=== PATIENT | female | born 1935 | race African-American/Black ===

== ENCOUNTER 2018-05-31 10:57 | Inpatient (IN) ==
[2018-05-31] MEDS ORDERED: ASPIRIN 325 MG TABLET PO STA (11:08)
[2018-05-31 11:30] LABS: Basophils % 0.3 % (0.0-0.8); Eosinophils % 0.3 % (0.00-10.9); Hematocrit 23.3 VOL% (35.7-47.0); Hemoglobin 7.1 GM/DL (12.0-16.0); Immature Granulocytes % 0.4 %; Immature Granulocytes Absolute 0.04 #; Lymphocytes # 1.1 10*3/uL (1.4-4.0); Lymphocytes % 11.4 % (21.3-54.2); Mean Corpuscular HGB Conc 30.5 GM/DL (32-36); Mean Corpuscular Hemoglobin 25 PG (27-34); Mean Corpuscular Volume 81.2 FL (87-102); Mean Platelet Volume 8.9 FL (9.6-12.0); Monocytes # 0.6 10*3/uL (0.11-0.8); Monocytes % 6.3 % (1.7-12.7); Neutrophils # 7.9 10*3/uL (1.4-7.4); Neutrophils % 81.3 % (38.7-73.9); Platelet Count 684 T/CUMM (130-400); Red Blood Count 2.87 MC/CUMM (3.8-5.5); Red Cell Distribution Width 17.6 % (9.3-17.3); White Blood Count 9.7 T/CUMM (4-12)
[2018-05-31] MEDS ORDERED: FUROSEMIDE 40 MG/4 ML VIAL IV STA (11:31)
[2018-05-31 11:42] LABS: PT Patient Result 10.8 SECS
[2018-05-31 12:12] LABS: Alanine Aminotransferase 10 U/L (13-56); Albumin 3.2 G/DL (3.4-5.0); Alkaline Phosphatase 123 U/L (45-117); Aspartate Amino Transferase 12 U/L (0-37); Blood Urea Nitrogen 23 MG/DL (7-18); Calcium 9.8 MG/DL (8.5-10.1); Glucose 136 MG/DL (74-106); Osmolality,Calculated 282.5 MOS/KG (273-304); Sodium 139 MMOL/L (136-145); Troponin I 0.036 NG/ML (0.00-0.045)
[2018-05-31] MEDS ORDERED: SODIUM CHLORIDE 0.9% 1,000 ML IV PRN (12:56)
[2018-05-31] MEDS ORDERED: MORPHINE 4 MG/1 ML VIAL IV PRN (13:26)
[2018-05-31] MEDS ORDERED: ONDANSETRON 4 MG/2 ML VIAL IV PRN (13:26)
[2018-05-31] MEDS ORDERED: diphenhydrAMINE CAP 25 MG CAPSULE PO PRN (13:26)
[2018-05-31] MEDS ORDERED: ACETAMINOPHEN 325 MG TABLET PO PRN (13:26)
[2018-05-31] MEDS ORDERED: traZODone 50 MG TABLET PO PRN (13:26)
[2018-05-31 14:20] LABS: % Iron Saturation 12.1 % (18-50); Ferritin 870.6 ng/ml (8-252)
[2018-05-31 14:28] LABS: Risk Ratio 2.76; VLDL CHOLESTEROL 12.8 MG/DL
[2018-05-31 14:29] LABS: Folate 13.4 NG/ML (5.4-24.0)
[2018-05-31] MEDS ORDERED: PNEUMOCOCCAL VACCINE (13 VALENT) 0.5 ML SYRINGE IM ONE (16:00)
[2018-05-31] MEDS: FUROSEMIDE 40 MG/4 ML VIAL IV SCH (16:51)
[2018-05-31] MEDS: GEMFIBROZIL 600 MG TABLET PO SCH (21:59)
[2018-05-31] MEDS: glipiZIDE 5 MG TABLET PO SCH (21:59)
[2018-05-31] MEDS: metFORMIN 500 MG TABLET PO SCH (21:59)
[2018-06-01 05:03] LABS: Basophils # 0.1 10*3/uL (0.0-0.2); Basophils % 0.6 % (0.0-0.8); Eosinophils # 0.1 10*3/uL (0.0-0.87); Eosinophils % 1.4 % (0.00-10.9); Hemoglobin 8.5 GM/DL (12.0-16.0); Immature Granulocytes % 0.8 %; Immature Granulocytes Absolute 0.08 #; Lymphocytes # 2.3 10*3/uL (1.4-4.0); Lymphocytes % 22.5 % (21.3-54.2); Mean Corpuscular HGB Conc 31.5 GM/DL (32-36); Mean Corpuscular Hemoglobin 25 PG (27-34); Mean Corpuscular Volume 80.6 FL (87-102); Mean Platelet Volume 8.8 FL (9.6-12.0); Monocytes % 9.5 % (1.7-12.7); Neutrophils # 6.7 10*3/uL (1.4-7.4); Neutrophils % 65.2 % (38.7-73.9); Platelet Count 631 T/CUMM (130-400); Red Blood Count 3.35 MC/CUMM (3.8-5.5); Red Cell Distribution Width 17.2 % (9.3-17.3); White Blood Count 10.3 T/CUMM (4-12)
[2018-06-01 05:31] LABS: Albumin 3.1 G/DL (3.4-5.0); Bilirubin,Total 0.5 MG/DL (0.2-1.0); Calcium 9.6 MG/DL (8.5-10.1); Osmolality,Calculated 282.3 MOS/KG (273-304); Potassium 3.6 MMOL/L (3.5-5.1); Total Protein 8.2 G/DL (6.4-8.3)
[2018-06-01] MEDS ORDERED: SIMVASTATIN 40 MG TABLET PO SCH (09:00)
[2018-06-01] MEDS ORDERED: hydroCHLOROthiazide 25 MG TABLET PO SCH (09:00)
[2018-06-01] MEDS ORDERED: amLODIPine 10 MG TABLET PO SCH (09:00)
[2018-06-01] MEDS ORDERED: amLODIPine 5 MG TABLET PO SCH (09:00)
[2018-06-01] MEDS ORDERED: BENAZEPRIL 40 MG TABLET PO SCH (09:00)
[2018-06-01] MEDS ORDERED: MIDAZOLAM 2 MG/2 ML VIAL ONE (09:03)
[2018-06-01 09:30] LABS: Albumin (SPE) 4.4 G/DL (3.2-5.3); Albumin (SPE) Rel % 52.2 %; Alpha 1 (SPE) 0.4 G/DL (0.1-0.4); Alpha 1 (SPE) Rel % 5.2 %; Alpha 2 (SPE) 1.3 G/DL (0.4-1.0); Alpha 2 (SPE) Rel % 15.2 %; Total Protein (Chem) 8.5 G/DL (6.4-8.3)
[2018-06-01 09:31] LABS: Beta (SPE) 1.1 G/DL (0.5-1.1); Beta (SPE) Rel % 13.8 %; Gamma (SPE) 1.1 G/DL (0.7-1.7); Gamma (SPE) Rel % 13.6 %
[2018-06-01] MEDS: glipiZIDE 5 MG TABLET PO SCH ×2 (10:04→22:03)
[2018-06-01] MEDS: metFORMIN 500 MG TABLET PO SCH ×2 (10:04→22:03)
[2018-06-01] MEDS: FUROSEMIDE 40 MG/4 ML VIAL IV SCH ×2 (10:23→15:38)
[2018-06-01] MEDS: GEMFIBROZIL 600 MG TABLET PO SCH ×2 (10:23→22:03)
[2018-06-01] MEDS: BENAZEPRIL 40 MG TABLET PO SCH (10:29)
[2018-06-01] MEDS: METOPROLOL TARTRATE 25 MG TABLET PO SCH (10:29)
[2018-06-01] MEDS: BISACODYL 5 MG TABLET PO SCH ×2 (12:02→17:07)
[2018-06-01] MEDS ORDERED: POLYETHYLENE GLYCOL POWDER 255 GM BOTTLE PO ONE (18:00)
[2018-06-01] MEDS: MAGNESIUM CITRATE 300 ML BOTTLE PO ONE (22:04)
[2018-06-02] MEDS: BISACODYL 5 MG TABLET PO SCH (02:43)
[2018-06-02 05:37] LABS: Basophils % 0.4 % (0.0-0.8); Eosinophils # 0.1 10*3/uL (0.0-0.87); Eosinophils % 1.3 % (0.00-10.9); Hematocrit 28.4 VOL% (35.7-47.0); Hemoglobin 8.7 GM/DL (12.0-16.0); Immature Granulocytes % 0.6 %; Immature Granulocytes Absolute 0.06 #; Lymphocytes # 2.4 10*3/uL (1.4-4.0); Lymphocytes % 24.2 % (21.3-54.2); Mean Corpuscular HGB Conc 30.6 GM/DL (32-36); Mean Corpuscular Hemoglobin 25 PG (27-34); Mean Corpuscular Volume 81.4 FL (87-102); Mean Platelet Volume 8.8 FL (9.6-12.0); Monocytes # 0.9 10*3/uL (0.11-0.8); Monocytes % 9.4 % (1.7-12.7); Neutrophils # 6.3 10*3/uL (1.4-7.4); Neutrophils % 64.1 % (38.7-73.9); Platelet Count 664 T/CUMM (130-400); Red Blood Count 3.49 MC/CUMM (3.8-5.5); Red Cell Distribution Width 17.6 % (9.3-17.3); White Blood Count 9.8 T/CUMM (4-12)
[2018-06-02 06:13] LABS: Calcium 9.9 MG/DL (8.5-10.1); Osmolality,Calculated 279.7 MOS/KG (273-304); Potassium 3.3 MMOL/L (3.5-5.1)
[2018-06-02 06:17] LABS: Albumin 3.2 G/DL (3.4-5.0); Bilirubin,Total 0.8 MG/DL (0.2-1.0); Calcium 9.9 MG/DL (8.5-10.1); Osmolality,Calculated 279.7 MOS/KG (273-304); Potassium 3.3 MMOL/L (3.5-5.1); Total Protein 8.5 G/DL (6.4-8.3)
[2018-06-02] MEDS: MAGNESIUM CITRATE 300 ML BOTTLE PO ONE (06:39)
[2018-06-02] MEDS ORDERED: PHENYLEPHRINE 1 MG/10 ML SYRINGE IV ONE (09:00)
[2018-06-02] MEDS ORDERED: ETOMIDATE 20 MG/10 ML VIAL IV ONE (09:00)
[2018-06-02] MEDS ORDERED: PROPOFOL 200 MG/20 ML VIAL IV ONE (09:00)
[2018-06-02] MEDS ORDERED: LIDOCAINE 1% 5 ML VIAL ONE (09:00)
[2018-06-02] MEDS ORDERED: ONDANSETRON 4 MG/2 ML VIAL ONE (09:05)
[2018-06-02] MEDS ORDERED: LIDOCAINE 100 MG/5 ML SYRINGE ONE (09:05)
[2018-06-02] MEDS: glipiZIDE 5 MG TABLET PO SCH ×2 (10:51→21:43)
[2018-06-02] MEDS: METOPROLOL TARTRATE 25 MG TABLET PO SCH (10:51)
[2018-06-02] MEDS: GEMFIBROZIL 600 MG TABLET PO SCH ×2 (10:51→21:43)
[2018-06-02] MEDS: FUROSEMIDE 40 MG/4 ML VIAL IV SCH ×2 (10:52→16:41)
[2018-06-02] MEDS: metFORMIN 500 MG TABLET PO SCH ×2 (10:52→21:42)
[2018-06-02] MEDS: POTASSIUM CHLORIDE RIDER 10 MEQ in PREMIX 1 EACH IV PRN ×4 (10:53→17:58)
[2018-06-02] MEDS: BENAZEPRIL 40 MG TABLET PO SCH (10:55)
[2018-06-02] MEDS: SIMVASTATIN 40 MG TABLET PO SCH (21:43)
[2018-06-03] MEDS: POTASSIUM CHLORIDE RIDER 10 MEQ in PREMIX 1 EACH IV PRN ×4 (00:47→05:16)
[2018-06-03 07:42] LABS: Basophils % 0.3 % (0.0-0.8); Eosinophils # 0.1 10*3/uL (0.0-0.87); Eosinophils % 1.2 % (0.00-10.9); Hematocrit 26.2 VOL% (35.7-47.0); Hemoglobin 8.2 GM/DL (12.0-16.0); Immature Granulocytes % 0.7 %; Immature Granulocytes Absolute 0.08 #; Lymphocytes # 2.1 10*3/uL (1.4-4.0); Lymphocytes % 18.6 % (21.3-54.2); Mean Corpuscular HGB Conc 31.3 GM/DL (32-36); Mean Corpuscular Hemoglobin 26 PG (27-34); Mean Corpuscular Volume 82.1 FL (87-102); Mean Platelet Volume 8.6 FL (9.6-12.0); Monocytes # 0.9 10*3/uL (0.11-0.8); Monocytes % 8.1 % (1.7-12.7); Neutrophils # 7.9 10*3/uL (1.4-7.4); Neutrophils % 71.1 % (38.7-73.9); Platelet Count 551 T/CUMM (130-400); Red Blood Count 3.19 MC/CUMM (3.8-5.5); Red Cell Distribution Width 17.6 % (9.3-17.3)
[2018-06-03 08:24] LABS: Albumin 2.9 G/DL (3.4-5.0); Bilirubin,Total 0.8 MG/DL (0.2-1.0); Calcium 9.7 MG/DL (8.5-10.1); Potassium 3.6 MMOL/L (3.5-5.1); Total Protein 7.9 G/DL (6.4-8.3)
[2018-06-03] MEDS: FUROSEMIDE 40 MG/4 ML VIAL IV SCH ×2 (08:59→17:00)
[2018-06-03] MEDS: GEMFIBROZIL 600 MG TABLET PO SCH ×2 (09:00→21:54)
[2018-06-03] MEDS: glipiZIDE 5 MG TABLET PO SCH ×2 (09:00→21:54)
[2018-06-03] MEDS: METOPROLOL TARTRATE 25 MG TABLET PO SCH (09:00)
[2018-06-03] MEDS: metFORMIN 500 MG TABLET PO SCH (09:00)
[2018-06-03] MEDS ORDERED: ENALAPRIL 10 MG TABLET PO SCH (09:30)
[2018-06-03] MEDS ORDERED: ENALAPRIL 20 MG TABLET PO SCH (09:30)
[2018-06-03] MEDS: BENAZEPRIL 40 MG TABLET PO SCH (12:40)
[2018-06-03] MEDS: SIMVASTATIN 40 MG TABLET PO SCH (21:54)
[2018-06-04 05:23] LABS: Basophils % 0.4 % (0.0-0.8); Eosinophils # 0.2 10*3/uL (0.0-0.87); Eosinophils % 1.9 % (0.00-10.9); Hematocrit 24.5 VOL% (35.7-47.0); Hemoglobin 7.7 GM/DL (12.0-16.0); Immature Granulocytes % 0.9 %; Immature Granulocytes Absolute 0.09 #; Lymphocytes # 2.3 10*3/uL (1.4-4.0); Lymphocytes % 22.5 % (21.3-54.2); Mean Corpuscular HGB Conc 31.4 GM/DL (32-36); Mean Corpuscular Hemoglobin 25 PG (27-34); Mean Corpuscular Volume 80.9 FL (87-102); Mean Platelet Volume 8.7 FL (9.6-12.0); Monocytes # 1.1 10*3/uL (0.11-0.8); Monocytes % 10.4 % (1.7-12.7); Neutrophils # 6.5 10*3/uL (1.4-7.4); Neutrophils % 63.9 % (38.7-73.9); Platelet Count 552 T/CUMM (130-400); Red Blood Count 3.03 MC/CUMM (3.8-5.5); Red Cell Distribution Width 17.4 % (9.3-17.3); White Blood Count 10.2 T/CUMM (4-12)
[2018-06-04 05:51] LABS: Calcium 9.7 MG/DL (8.5-10.1); Osmolality,Calculated 278.1 MOS/KG (273-304); Potassium 3.6 MMOL/L (3.5-5.1)
[2018-06-04] MEDS: GEMFIBROZIL 600 MG TABLET PO SCH ×2 (08:31→23:57)
[2018-06-04] MEDS: glipiZIDE 5 MG TABLET PO SCH ×2 (08:31→23:57)
[2018-06-04] MEDS: METOPROLOL TARTRATE 25 MG TABLET PO SCH (08:32)
[2018-06-04] MEDS: FUROSEMIDE 40 MG/4 ML VIAL IV SCH ×2 (08:32→16:12)
[2018-06-04] MEDS ORDERED: SODIUM CHLORIDE 0.9% 1,000 ML IV PRN (14:06)
[2018-06-04 20:32] LABS: Hematocrit 26.5 VOL% (35.7-47.0); Hemoglobin 8.6 GM/DL (12.0-16.0)
[2018-06-04] MEDS: SIMVASTATIN 40 MG TABLET PO SCH (23:58)
[2018-06-05 05:34] LABS: Basophils # 0.1 10*3/uL (0.0-0.2); Basophils % 0.5 % (0.0-0.8); Eosinophils # 0.2 10*3/uL (0.0-0.87); Hematocrit 28.2 VOL% (35.7-47.0); Hemoglobin 8.8 GM/DL (12.0-16.0); Immature Granulocytes % 0.8 %; Immature Granulocytes Absolute 0.07 #; Lymphocytes # 2.1 10*3/uL (1.4-4.0); Lymphocytes % 22.9 % (21.3-54.2); Mean Corpuscular HGB Conc 31.2 GM/DL (32-36); Mean Corpuscular Hemoglobin 26 PG (27-34); Mean Corpuscular Volume 81.7 FL (87-102); Mean Platelet Volume 8.8 FL (9.6-12.0); Neutrophils # 5.7 10*3/uL (1.4-7.4); Neutrophils % 62.8 % (38.7-73.9); Platelet Count 560 T/CUMM (130-400); Red Blood Count 3.45 MC/CUMM (3.8-5.5); Red Cell Distribution Width 17.3 % (9.3-17.3); White Blood Count 9.1 T/CUMM (4-12)
[2018-06-05 05:45] LABS: Calcium 9.6 MG/DL (8.5-10.1); Osmolality,Calculated 286.7 MOS/KG (273-304); Potassium 3.6 MMOL/L (3.5-5.1)
[2018-06-05] MEDS: FUROSEMIDE 40 MG/4 ML VIAL IV SCH ×2 (09:31→17:39)
[2018-06-05] MEDS: glipiZIDE 5 MG TABLET PO SCH ×2 (09:32→21:14)
[2018-06-05] MEDS: GEMFIBROZIL 600 MG TABLET PO SCH ×2 (09:32→21:14)
[2018-06-05] MEDS: METOPROLOL TARTRATE 25 MG TABLET PO SCH (09:32)
[2018-06-05] MEDS: SIMVASTATIN 40 MG TABLET PO SCH (21:14)
[2018-06-06] MEDS ORDERED: TUBERCULIN SKIN TEST 0.1 ML SYRINGE INTRADERM ONE (07:35)
[2018-06-06] MEDS: GEMFIBROZIL 600 MG TABLET PO SCH ×2 (09:04→21:06)
[2018-06-06] MEDS: METOPROLOL SUCCINATE XL 25 MG TABLET PO SCH (09:04)
[2018-06-06] MEDS: glipiZIDE 5 MG TABLET PO SCH (17:41)
[2018-06-06] MEDS: SIMVASTATIN 40 MG TABLET PO SCH (21:06)
[2018-06-07 05:11] LABS: Calcium 9.8 MG/DL (8.5-10.1); Osmolality,Calculated 282.7 MOS/KG (273-304); Potassium 3.3 MMOL/L (3.5-5.1)
[2018-06-07 05:12] LABS: Basophils # 0.1 10*3/uL (0.0-0.2); Basophils % 0.6 % (0.0-0.8); Eosinophils # 0.1 10*3/uL (0.0-0.87); Eosinophils % 1.6 % (0.00-10.9); Hematocrit 27.2 VOL% (35.7-47.0); Hemoglobin 8.5 GM/DL (12.0-16.0); Immature Granulocytes % 0.7 %; Immature Granulocytes Absolute 0.06 #; Lymphocytes # 1.9 10*3/uL (1.4-4.0); Lymphocytes % 22.1 % (21.3-54.2); Mean Corpuscular HGB Conc 31.3 GM/DL (32-36); Mean Corpuscular Hemoglobin 26 PG (27-34); Mean Corpuscular Volume 82.2 FL (87-102); Monocytes # 0.9 10*3/uL (0.11-0.8); Monocytes % 10.5 % (1.7-12.7); Neutrophils # 5.6 10*3/uL (1.4-7.4); Neutrophils % 64.5 % (38.7-73.9); Platelet Count 546 T/CUMM (130-400); Red Blood Count 3.31 MC/CUMM (3.8-5.5); Red Cell Distribution Width 17.2 % (9.3-17.3); White Blood Count 8.7 T/CUMM (4-12)
[2018-06-07] MEDS ORDERED: MAGNESIUM SULF RIDER 2 GM in PREMIX 1 EACH IV PRN (08:49)
[2018-06-07] MEDS ORDERED: MAGNESIUM SULF RIDER 4 GM in PREMIX 1 EACH IV PRN (08:49)
[2018-06-07] MEDS ORDERED: MAGNESIUM SULF RIDER 2 GM in PREMIX 1 EACH IV ONE (09:00)
[2018-06-07] MEDS: GEMFIBROZIL 600 MG TABLET PO SCH ×2 (10:36→20:47)
[2018-06-07] MEDS: glipiZIDE 5 MG TABLET PO SCH ×2 (10:36→16:14)
[2018-06-07] MEDS: METOPROLOL SUCCINATE XL 25 MG TABLET PO SCH (10:36)
[2018-06-07] MEDS: POLYETHYLENE GLYCOL POWDER 17 GM PACK PO SCH (10:39)
[2018-06-07] MEDS: SIMVASTATIN 40 MG TABLET PO SCH (20:47)
[2018-06-08 05:15] LABS: Basophils # 0.1 10*3/uL (0.0-0.2); Basophils % 0.6 % (0.0-0.8); Eosinophils # 0.2 10*3/uL (0.0-0.87); Eosinophils % 1.8 % (0.00-10.9); Hemoglobin 8.6 GM/DL (12.0-16.0); Immature Granulocytes % 0.8 %; Immature Granulocytes Absolute 0.07 #; Lymphocytes # 1.8 10*3/uL (1.4-4.0); Lymphocytes % 19.1 % (21.3-54.2); Mean Corpuscular HGB Conc 30.7 GM/DL (32-36); Mean Corpuscular Hemoglobin 26 PG (27-34); Mean Corpuscular Volume 83.1 FL (87-102); Mean Platelet Volume 8.8 FL (9.6-12.0); Monocytes # 0.9 10*3/uL (0.11-0.8); Monocytes % 9.8 % (1.7-12.7); Neutrophils # 6.3 10*3/uL (1.4-7.4); Neutrophils % 67.9 % (38.7-73.9); Platelet Count 510 T/CUMM (130-400); Red Blood Count 3.37 MC/CUMM (3.8-5.5); Red Cell Distribution Width 17.5 % (9.3-17.3); White Blood Count 9.3 T/CUMM (4-12)
[2018-06-08 05:36] LABS: Calcium 9.9 MG/DL (8.5-10.1); Osmolality,Calculated 281.5 MOS/KG (273-304); Potassium 3.5 MMOL/L (3.5-5.1)
[2018-06-08] MEDS: POLYETHYLENE GLYCOL POWDER 17 GM PACK PO SCH (09:53)
[2018-06-08] MEDS: GEMFIBROZIL 600 MG TABLET PO SCH (09:53)
[2018-06-08] MEDS: glipiZIDE 5 MG TABLET PO SCH (09:53)
[2018-06-08] MEDS: METOPROLOL SUCCINATE XL 25 MG TABLET PO SCH (09:53)
[2018-06-08 11:47] VITALS: BP 116/56
== END 2018-06-08 14:45 | disposition swing bed (61) | DRG 377 ==
LOC: EDBD → EDUNIT# → N.ED 10:57 → SUATTDRO 14:17 → N.EDINP 14:17 → N.2E 15:31
PROVIDERS: ADMIT Internal Medicine Infectious Disease; ATTEND Internal Medicine

== ENCOUNTER 2018-07-12 14:03 | Inpatient (IN) ==
[2018-07-12] MEDS ORDERED: DEXTROSE 50% 25 GM/50 ML SYRINGE IV PRN (15:07)
[2018-07-12] MEDS ORDERED: GLUCAGON 1 MG VIAL IM PRN (15:07)
[2018-07-12] MEDS ORDERED: ONDANSETRON 4 MG/2 ML VIAL IV PRN (15:07)
[2018-07-12] MEDS ORDERED: ALBUTEROL 2.5 MG/3 ML NEB RESP TX PRN (15:10)
[2018-07-12] MEDS ORDERED: ALBUTEROL/IPRATROPIUM 3 ML NEB RESP TX PRN (15:10)
[2018-07-12 15:31] LABS: Basophils % 0.4 % (0.0-0.8); Eosinophils # 0.1 10*3/uL (0.0-0.87); Eosinophils % 1.2 % (0.00-10.9); Hematocrit 21.9 VOL% (35.7-47.0); Hemoglobin 6.8 GM/DL (12.0-16.0); Immature Granulocytes % 0.5 %; Immature Granulocytes Absolute 0.05 #; Lymphocytes # 1.8 10*3/uL (1.4-4.0); Lymphocytes % 19.4 % (21.3-54.2); Mean Corpuscular HGB Conc 31.1 GM/DL (32-36); Mean Corpuscular Hemoglobin 25 PG (27-34); Mean Corpuscular Volume 81.7 FL (87-102); Mean Platelet Volume 8.7 FL (9.6-12.0); Monocytes # 0.9 10*3/uL (0.11-0.8); Monocytes % 9.5 % (1.7-12.7); NRBC # 0.03 10*3/uL; Neutrophils # 6.6 10*3/uL (1.4-7.4); Platelet Count 524 T/CUMM (130-400); Red Blood Count 2.68 MC/CUMM (3.8-5.5); Red Cell Distribution Width 18.8 % (9.3-17.3); White Blood Count 9.5 T/CUMM (4-12)
[2018-07-12] MEDS ORDERED: diphenhydrAMINE CAP 25 MG CAPSULE PO PRN (15:37)
[2018-07-12 15:49] LABS: Alanine Aminotransferase < 9 U/L (13-56); Alkaline Phosphatase 105 U/L (45-117); Aspartate Amino Transferase 14 U/L (0-37); Bilirubin,Total < 0.39 MG/DL (0.2-1.0); Blood Urea Nitrogen 15 MG/DL (7-18); Glucose 142 MG/DL (74-106); Sodium 136 MMOL/L (136-145); Total Protein 7.4 G/DL (6.4-8.3)
[2018-07-12] MEDS ORDERED: SODIUM CHLORIDE 0.9% 1,000 ML IV PRN (15:59)
[2018-07-12] MEDS ORDERED: FUROSEMIDE 20 MG/2 ML VIAL IV ONE (17:41)
[2018-07-12] MEDS: INSULIN LISPRO 100 UNIT/ML SUBCUT SCH ×2 (19:28→21:30)
[2018-07-12] MEDS: glipiZIDE 5 MG TABLET PO SCH (19:28)
[2018-07-12] MEDS: GEMFIBROZIL 600 MG TABLET PO SCH (21:31)
[2018-07-12] MEDS: SIMVASTATIN 40 MG TABLET PO SCH (21:31)
[2018-07-12] MEDS: DOCUSATE SODIUM 100 MG CAPSULE PO SCH (21:31)
[2018-07-13 05:11] LABS: Basophils # 0.1 10*3/uL (0.0-0.2); Basophils % 0.7 % (0.0-0.8); Eosinophils # 0.2 10*3/uL (0.0-0.87); Eosinophils % 2.5 % (0.00-10.9); Hematocrit 25.4 VOL% (35.7-47.0); Hemoglobin 7.9 GM/DL (12.0-16.0); Immature Granulocytes % 0.5 %; Immature Granulocytes Absolute 0.04 #; Lymphocytes # 1.7 10*3/uL (1.4-4.0); Lymphocytes % 19.5 % (21.3-54.2); Mean Corpuscular HGB Conc 31.1 GM/DL (32-36); Mean Corpuscular Hemoglobin 26 PG (27-34); Mean Corpuscular Volume 84.4 FL (87-102); Mean Platelet Volume 9.1 FL (9.6-12.0); Monocytes % 10.9 % (1.7-12.7); NRBC # 0.02 10*3/uL; Neutrophils # 5.8 10*3/uL (1.4-7.4); Neutrophils % 65.9 % (38.7-73.9); Platelet Count 506 T/CUMM (130-400); Red Blood Count 3.01 MC/CUMM (3.8-5.5); Red Cell Distribution Width 18.4 % (9.3-17.3); White Blood Count 8.7 T/CUMM (4-12)
[2018-07-13 08:46] LABS: Partial Thromboplastin Time 28.9 SECS (0-40)
[2018-07-13] MEDS ORDERED: NON-FORMULARY MEDICATION (Omeprazole [Prilosec] 20 MG) PO SCH (09:00)
[2018-07-13] MEDS ORDERED: POTASSIUM CHLORIDE 10 MEQ TABLET PO SCH (09:00)
[2018-07-13] MEDS ORDERED: FUROSEMIDE 20 MG/2 ML VIAL IV SCH (09:00)
[2018-07-13] MEDS ORDERED: FUROSEMIDE 20 MG TABLET PO SCH (09:00)
[2018-07-13] MEDS: INSULIN LISPRO 100 UNIT/ML SUBCUT SCH ×4 (09:56→21:21)
[2018-07-13] MEDS: glipiZIDE 5 MG TABLET PO SCH ×2 (10:07→16:16)
[2018-07-13] MEDS: POTASSIUM CHLORIDE 20 MEQ TABLET PO SCH ×2 (10:07→20:31)
[2018-07-13] MEDS: FUROSEMIDE 40 MG/4 ML VIAL IV SCH ×2 (10:07→16:16)
[2018-07-13] MEDS: METOPROLOL SUCCINATE XL 25 MG TABLET PO SCH (10:08)
[2018-07-13] MEDS: GEMFIBROZIL 600 MG TABLET PO SCH ×2 (10:08→20:30)
[2018-07-13] MEDS: PANTOPRAZOLE 40 MG TABLET PO SCH (10:09)
[2018-07-13] MEDS: DOCUSATE SODIUM 100 MG CAPSULE PO SCH ×2 (10:09→20:31)
[2018-07-13] MEDS: ACETAMINOPHEN 325 MG TABLET PO PRN (16:02)
[2018-07-13] MEDS: SIMVASTATIN 40 MG TABLET PO SCH (20:31)
[2018-07-14 04:39] LABS: Osmolality,Calculated 282.3 MOS/KG (273-304)
[2018-07-14 06:21] LABS: Basophils % 0.4 % (0.0-0.8); Eosinophils # 0.3 10*3/uL (0.0-0.87); Eosinophils % 3.4 % (0.00-10.9); Hematocrit 27.5 VOL% (35.7-47.0); Hemoglobin 8.5 GM/DL (12.0-16.0); Immature Granulocytes % 0.7 %; Immature Granulocytes Absolute 0.06 #; Lymphocytes # 2.2 10*3/uL (1.4-4.0); Lymphocytes % 23.8 % (21.3-54.2); Mean Corpuscular HGB Conc 30.9 GM/DL (32-36); Mean Corpuscular Hemoglobin 26 PG (27-34); Mean Corpuscular Volume 84.9 FL (87-102); Mean Platelet Volume 9.3 FL (9.6-12.0); Monocytes # 1.1 10*3/uL (0.11-0.8); Monocytes % 11.9 % (1.7-12.7); Neutrophils # 5.4 10*3/uL (1.4-7.4); Neutrophils % 59.8 % (38.7-73.9); Platelet Count 562 T/CUMM (130-400); Red Blood Count 3.24 MC/CUMM (3.8-5.5); Red Cell Distribution Width 18.5 % (9.3-17.3); White Blood Count 9.1 T/CUMM (4-12)
[2018-07-14] MEDS ORDERED: POTASSIUM CHLORIDE RIDER 10 MEQ in PREMIX 1 EACH IV PRN (07:13)
[2018-07-14] MEDS ORDERED: MAGNESIUM SULF RIDER 2 GM in PREMIX 1 EACH IV PRN (07:13)
[2018-07-14] MEDS ORDERED: HEPARIN/NACL 0.9% 2 UNITS/ML 1,000 ML IV ONE (11:31)
[2018-07-14] MEDS ORDERED: LIDOCAINE 1% 20 ML VIAL ONE (11:31)
[2018-07-14] MEDS: metOLazone 5 MG TABLET PO SCH ×2 (11:41→11:42)
[2018-07-14] MEDS: INSULIN LISPRO 100 UNIT/ML SUBCUT SCH ×4 (11:41→21:29)
[2018-07-14] MEDS: DOCUSATE SODIUM 100 MG CAPSULE PO SCH ×2 (11:42→21:29)
[2018-07-14] MEDS: POTASSIUM CHLORIDE 20 MEQ TABLET PO SCH ×2 (11:42→21:28)
[2018-07-14] MEDS: GEMFIBROZIL 600 MG TABLET PO SCH ×2 (11:42→21:28)
[2018-07-14] MEDS: METOPROLOL SUCCINATE XL 25 MG TABLET PO SCH (11:43)
[2018-07-14] MEDS: FUROSEMIDE 40 MG/4 ML VIAL IV SCH ×2 (11:43→18:37)
[2018-07-14] MEDS: PANTOPRAZOLE 40 MG TABLET PO SCH (11:43)
[2018-07-14] MEDS ORDERED: MIDAZOLAM 2 MG/2 ML VIAL ONE (11:56)
[2018-07-14] MEDS ORDERED: VERAPAMIL 5 MG/2 ML VIAL ONE (11:56)
[2018-07-14] MEDS ORDERED: NITROGLYCERIN DRIP 50 MG/250 ML BOTTLE IV ONE (11:56)
[2018-07-14] MEDS ORDERED: fentaNYL 100 MCG/2 ML VIAL ONE (11:56)
[2018-07-14] MEDS ORDERED: DIAZEPAM 5 MG TABLET PO ONE (12:00)
[2018-07-14] MEDS ORDERED: diphenhydrAMINE CAP 25 MG CAPSULE PO ONE (12:00)
[2018-07-14] MEDS ORDERED: ENOXAPARIN 60 MG/0.6 ML SYRINGE ONE (12:08)
[2018-07-14] MEDS: glipiZIDE 5 MG TABLET PO SCH (18:45)
[2018-07-14] MEDS: SIMVASTATIN 40 MG TABLET PO SCH (21:28)
[2018-07-15 05:00] LABS: Basophils % 0.4 % (0.0-0.8); Eosinophils # 0.2 10*3/uL (0.0-0.87); Hematocrit 26.2 VOL% (35.7-47.0); Hemoglobin 8.2 GM/DL (12.0-16.0); Immature Granulocytes % 0.6 %; Immature Granulocytes Absolute 0.05 #; Lymphocytes # 1.7 10*3/uL (1.4-4.0); Lymphocytes % 18.2 % (21.3-54.2); Mean Corpuscular HGB Conc 31.3 GM/DL (32-36); Mean Corpuscular Hemoglobin 27 PG (27-34); Mean Corpuscular Volume 84.5 FL (87-102); Mean Platelet Volume 8.8 FL (9.6-12.0); Monocytes # 0.9 10*3/uL (0.11-0.8); Monocytes % 9.8 % (1.7-12.7); Neutrophils # 6.3 10*3/uL (1.4-7.4); Platelet Count 473 T/CUMM (130-400); White Blood Count 9.1 T/CUMM (4-12)
[2018-07-15 05:18] LABS: Calcium 9.2 MG/DL (8.5-10.1); Osmolality,Calculated 281.3 MOS/KG (273-304); Potassium 3.5 MMOL/L (3.5-5.1)
[2018-07-15] MEDS: PANTOPRAZOLE 40 MG TABLET PO SCH (09:15)
[2018-07-15] MEDS: GEMFIBROZIL 600 MG TABLET PO SCH ×2 (09:15→21:22)
[2018-07-15] MEDS: POTASSIUM CHLORIDE 20 MEQ TABLET PO SCH ×2 (09:16→21:22)
[2018-07-15] MEDS: glipiZIDE 5 MG TABLET PO SCH ×2 (09:16→15:59)
[2018-07-15] MEDS: METOPROLOL SUCCINATE XL 25 MG TABLET PO SCH (09:16)
[2018-07-15] MEDS: DOCUSATE SODIUM 100 MG CAPSULE PO SCH ×2 (09:16→21:22)
[2018-07-15] MEDS: FUROSEMIDE 40 MG/4 ML VIAL IV SCH ×2 (09:17→15:59)
[2018-07-15] MEDS: INSULIN LISPRO 100 UNIT/ML SUBCUT SCH ×4 (09:25→21:23)
[2018-07-15] MEDS ORDERED: LACTULOSE 20 GM/30 ML UDCUP PO ONE (17:21)
[2018-07-15] MEDS: ACETAMINOPHEN 325 MG TABLET PO PRN (18:09)
[2018-07-15] MEDS: traZODone 50 MG TABLET PO PRN (21:22)
[2018-07-15] MEDS: SIMVASTATIN 40 MG TABLET PO SCH (21:26)
[2018-07-16] MEDS ORDERED: SODIUM CHLORIDE 0.9% 1,000 ML IV PRN (08:24)
[2018-07-16] MEDS: INSULIN LISPRO 100 UNIT/ML SUBCUT SCH ×4 (08:46→22:20)
[2018-07-16] MEDS: POTASSIUM CHLORIDE 20 MEQ TABLET PO SCH ×2 (08:47→21:14)
[2018-07-16] MEDS: DOCUSATE SODIUM 100 MG CAPSULE PO SCH ×2 (08:47→21:14)
[2018-07-16] MEDS: METOPROLOL SUCCINATE XL 25 MG TABLET PO SCH (08:47)
[2018-07-16] MEDS: glipiZIDE 5 MG TABLET PO SCH ×2 (08:48→17:04)
[2018-07-16] MEDS: GEMFIBROZIL 600 MG TABLET PO SCH ×2 (08:48→21:14)
[2018-07-16] MEDS: FUROSEMIDE 40 MG/4 ML VIAL IV SCH ×2 (08:48→17:03)
[2018-07-16] MEDS: PANTOPRAZOLE 40 MG TABLET PO SCH (08:48)
[2018-07-16] MEDS: ACETAMINOPHEN 325 MG TABLET PO PRN (14:38)
[2018-07-16 19:53] LABS: Hematocrit 32.4 VOL% (35.7-47.0)
[2018-07-16 19:54] LABS: Hemoglobin 10.4 GM/DL (12.0-16.0)
[2018-07-16] MEDS: SIMVASTATIN 40 MG TABLET PO SCH (21:14)
[2018-07-17 05:18] LABS: Basophils # 0.1 10*3/uL (0.0-0.2); Basophils % 0.6 % (0.0-0.8); Eosinophils # 0.3 10*3/uL (0.0-0.87); Eosinophils % 2.3 % (0.00-10.9); Hematocrit 32.8 VOL% (35.7-47.0); Hemoglobin 10.5 GM/DL (12.0-16.0); Immature Granulocytes % 0.3 %; Immature Granulocytes Absolute 0.03 #; Lymphocytes # 2.3 10*3/uL (1.4-4.0); Lymphocytes % 20.9 % (21.3-54.2); Mean Corpuscular Hemoglobin 27 PG (27-34); Mean Corpuscular Volume 83.5 FL (87-102); Mean Platelet Volume 8.9 FL (9.6-12.0); Monocytes # 1.1 10*3/uL (0.11-0.8); Monocytes % 10.6 % (1.7-12.7); Neutrophils % 65.3 % (38.7-73.9); Platelet Count 473 T/CUMM (130-400); Red Blood Count 3.93 MC/CUMM (3.8-5.5); White Blood Count 10.8 T/CUMM (4-12)
[2018-07-17 05:31] LABS: Calcium 9.5 MG/DL (8.5-10.1); Osmolality,Calculated 275.8 MOS/KG (273-304); Potassium 3.6 MMOL/L (3.5-5.1)
[2018-07-17] MEDS: INSULIN LISPRO 100 UNIT/ML SUBCUT SCH ×4 (07:51→20:04)
[2018-07-17] MEDS: FUROSEMIDE 40 MG/4 ML VIAL IV SCH ×2 (08:55→16:38)
[2018-07-17] MEDS: PANTOPRAZOLE 40 MG TABLET PO SCH (08:57)
[2018-07-17] MEDS: METOPROLOL SUCCINATE XL 25 MG TABLET PO SCH (08:57)
[2018-07-17] MEDS: DOCUSATE SODIUM 100 MG CAPSULE PO SCH ×2 (08:58→20:25)
[2018-07-17] MEDS: GEMFIBROZIL 600 MG TABLET PO SCH ×2 (08:58→20:25)
[2018-07-17] MEDS: glipiZIDE 5 MG TABLET PO SCH ×2 (08:58→16:38)
[2018-07-17] MEDS: POTASSIUM CHLORIDE 20 MEQ TABLET PO SCH ×2 (08:58→20:25)
[2018-07-17] MEDS: ACETAMINOPHEN 325 MG TABLET PO PRN ×2 (09:01→16:42)
[2018-07-17] MEDS: SIMVASTATIN 40 MG TABLET PO SCH (20:25)
[2018-07-18 04:19] LABS: Basophils % 0.4 % (0.0-0.8); Eosinophils # 0.3 10*3/uL (0.0-0.87); Eosinophils % 3.2 % (0.00-10.9); Hematocrit 32.7 VOL% (35.7-47.0); Hemoglobin 10.4 GM/DL (12.0-16.0); Immature Granulocytes % 0.4 %; Immature Granulocytes Absolute 0.04 #; Lymphocytes # 1.9 10*3/uL (1.4-4.0); Lymphocytes % 18.9 % (21.3-54.2); Mean Corpuscular HGB Conc 31.8 GM/DL (32-36); Mean Corpuscular Hemoglobin 27 PG (27-34); Mean Corpuscular Volume 84.1 FL (87-102); Mean Platelet Volume 9.1 FL (9.6-12.0); Monocytes # 1.2 10*3/uL (0.11-0.8); Monocytes % 11.4 % (1.7-12.7); Neutrophils # 6.7 10*3/uL (1.4-7.4); Neutrophils % 65.7 % (38.7-73.9); Platelet Count 472 T/CUMM (130-400); Red Blood Count 3.89 MC/CUMM (3.8-5.5); Red Cell Distribution Width 17.7 % (9.3-17.3); White Blood Count 10.2 T/CUMM (4-12)
[2018-07-18 04:34] LABS: Calcium 9.5 MG/DL (8.5-10.1); Osmolality,Calculated 278.7 MOS/KG (273-304); Potassium 3.4 MMOL/L (3.5-5.1)
[2018-07-18] MEDS: DOCUSATE SODIUM 100 MG CAPSULE PO SCH ×2 (08:57→21:09)
[2018-07-18] MEDS: INSULIN LISPRO 100 UNIT/ML SUBCUT SCH ×4 (08:57→21:08)
[2018-07-18] MEDS: GEMFIBROZIL 600 MG TABLET PO SCH ×2 (08:57→21:09)
[2018-07-18] MEDS: METOPROLOL SUCCINATE XL 25 MG TABLET PO SCH (08:58)
[2018-07-18] MEDS: POTASSIUM CHLORIDE 20 MEQ TABLET PO SCH ×2 (08:58→21:09)
[2018-07-18] MEDS: glipiZIDE 5 MG TABLET PO SCH ×2 (08:58→16:22)
[2018-07-18] MEDS: PANTOPRAZOLE 40 MG TABLET PO SCH (08:58)
[2018-07-18] MEDS: FUROSEMIDE 40 MG/4 ML VIAL IV SCH ×2 (08:58→16:23)
[2018-07-18] MEDS ORDERED: GLUCAGON 1 MG VIAL IM PRN (09:31)
[2018-07-18] MEDS ORDERED: DEXTROSE 50% 25 GM/50 ML VIAL IV PRN (09:31)
[2018-07-18] MEDS ORDERED: SODIUM CHLORIDE 0.9% 1,000 ML IV SCH (10:00)
[2018-07-18 12:36] LABS: ABG Base Excess 5.8 MMOL/L (-2.5-2.5); ABG HCO3 28.5 MMOL/L (20-26); ABG Oxygen Saturation 96.8 % (95-100); ABG PCO2 34.9 MM HG (35-48); ABG PO2 89.3 MM HG (80-95); ABG TCO2 29.6 MMOL/L (23-27)
[2018-07-18] MEDS: ACETAMINOPHEN 325 MG TABLET PO PRN (16:24)
[2018-07-18] MEDS: SIMVASTATIN 40 MG TABLET PO SCH (21:09)
[2018-07-19 04:18] LABS: Basophils % 0.5 % (0.0-0.8); Eosinophils # 0.2 10*3/uL (0.0-0.87); Eosinophils % 1.9 % (0.00-10.9); Hematocrit 31.9 VOL% (35.7-47.0); Hemoglobin 9.9 GM/DL (12.0-16.0); Immature Granulocytes % 0.5 %; Immature Granulocytes Absolute 0.04 #; Lymphocytes # 1.6 10*3/uL (1.4-4.0); Lymphocytes % 18.2 % (21.3-54.2); Mean Corpuscular Hemoglobin 27 PG (27-34); Mean Corpuscular Volume 85.3 FL (87-102); Mean Platelet Volume 8.9 FL (9.6-12.0); Monocytes # 1.1 10*3/uL (0.11-0.8); Monocytes % 12.9 % (1.7-12.7); Neutrophils # 5.8 10*3/uL (1.4-7.4); Platelet Count 456 T/CUMM (130-400); Red Blood Count 3.74 MC/CUMM (3.8-5.5); Red Cell Distribution Width 17.8 % (9.3-17.3); White Blood Count 8.8 T/CUMM (4-12)
[2018-07-19 04:42] LABS: Calcium 9.7 MG/DL (8.5-10.1); Osmolality,Calculated 277.8 MOS/KG (273-304); Potassium 3.2 MMOL/L (3.5-5.1)
[2018-07-19] MEDS: FUROSEMIDE 40 MG/4 ML VIAL IV SCH ×2 (09:45→17:12)
[2018-07-19] MEDS: PANTOPRAZOLE 40 MG TABLET PO SCH (09:54)
[2018-07-19] MEDS: POTASSIUM CHLORIDE 20 MEQ TABLET PO SCH ×2 (09:55→21:37)
[2018-07-19] MEDS: GEMFIBROZIL 600 MG TABLET PO SCH ×2 (09:55→21:36)
[2018-07-19] MEDS: glipiZIDE 5 MG TABLET PO SCH ×2 (09:56→17:12)
[2018-07-19] MEDS: METOPROLOL SUCCINATE XL 25 MG TABLET PO SCH (09:58)
[2018-07-19] MEDS: ACETAMINOPHEN 325 MG TABLET PO PRN (09:58)
[2018-07-19] MEDS: DOCUSATE SODIUM 100 MG CAPSULE PO SCH ×2 (10:02→21:37)
[2018-07-19] MEDS: INSULIN LISPRO 100 UNIT/ML SUBCUT SCH ×4 (10:22→21:36)
[2018-07-19] MEDS: SIMVASTATIN 40 MG TABLET PO SCH (21:37)
[2018-07-20 04:58] LABS: Basophils # 0.1 10*3/uL (0.0-0.2); Basophils % 0.5 % (0.0-0.8); Eosinophils # 0.2 10*3/uL (0.0-0.87); Eosinophils % 1.7 % (0.00-10.9); Hematocrit 31.4 VOL% (35.7-47.0); Immature Granulocytes % 0.5 %; Immature Granulocytes Absolute 0.05 #; Lymphocytes # 2.2 10*3/uL (1.4-4.0); Mean Corpuscular HGB Conc 31.8 GM/DL (32-36); Mean Corpuscular Hemoglobin 27 PG (27-34); Mean Corpuscular Volume 84.6 FL (87-102); Monocytes # 1.3 10*3/uL (0.11-0.8); Monocytes % 12.2 % (1.7-12.7); Neutrophils # 6.7 10*3/uL (1.4-7.4); Neutrophils % 64.1 % (38.7-73.9); Platelet Count 468 T/CUMM (130-400); Red Blood Count 3.71 MC/CUMM (3.8-5.5); White Blood Count 10.5 T/CUMM (4-12)
[2018-07-20 05:17] LABS: Calcium 9.6 MG/DL (8.5-10.1); Potassium 3.6 MMOL/L (3.5-5.1)
[2018-07-20] MEDS: ACETAMINOPHEN 325 MG TABLET PO PRN ×2 (07:30→14:08)
[2018-07-20] MEDS: INSULIN LISPRO 100 UNIT/ML SUBCUT SCH ×4 (08:30→21:53)
[2018-07-20] MEDS: DOCUSATE SODIUM 100 MG CAPSULE PO SCH ×2 (10:02→21:54)
[2018-07-20] MEDS: FUROSEMIDE 40 MG/4 ML VIAL IV SCH ×2 (10:02→16:06)
[2018-07-20] MEDS: METOPROLOL SUCCINATE XL 25 MG TABLET PO SCH (10:02)
[2018-07-20] MEDS: POTASSIUM CHLORIDE 20 MEQ TABLET PO SCH ×2 (10:02→21:52)
[2018-07-20] MEDS: PANTOPRAZOLE 40 MG TABLET PO SCH (10:02)
[2018-07-20] MEDS: GEMFIBROZIL 600 MG TABLET PO SCH ×2 (10:02→21:52)
[2018-07-20] MEDS: glipiZIDE 5 MG TABLET PO SCH ×2 (10:02→16:05)
[2018-07-20] MEDS ORDERED: traMADol 50 MG TABLET PO PRN (16:15)
[2018-07-20] MEDS: CHLORHEXIDINE 4% SOLN 118 ML BOTTLE TOP SCH ×2 (17:30→21:54)
[2018-07-20] MEDS ORDERED: SODIUM CHLORIDE 0.9% 1,000 ML IV SCH (21:00)
[2018-07-20] MEDS: traZODone 50 MG TABLET PO PRN (21:52)
[2018-07-20] MEDS: SIMVASTATIN 40 MG TABLET PO SCH (21:52)
[2018-07-20] MEDS: CHLORHEXIDINE 0.12% ORAL RINSE 60 ML BOTTLE SWISH/SPIT SCH (21:53)
[2018-07-21 04:08] LABS: Basophils # 0.1 10*3/uL (0.0-0.2); Basophils % 0.5 % (0.0-0.8); Eosinophils # 0.2 10*3/uL (0.0-0.87); Eosinophils % 1.9 % (0.00-10.9); Hematocrit 30.8 VOL% (35.7-47.0); Hemoglobin 9.5 GM/DL (12.0-16.0); Immature Granulocytes % 0.4 %; Immature Granulocytes Absolute 0.04 #; Lymphocytes # 1.7 10*3/uL (1.4-4.0); Lymphocytes % 18.4 % (21.3-54.2); Mean Corpuscular HGB Conc 30.8 GM/DL (32-36); Mean Corpuscular Hemoglobin 27 PG (27-34); Mean Corpuscular Volume 85.8 FL (87-102); Monocytes % 10.5 % (1.7-12.7); Neutrophils # 6.3 10*3/uL (1.4-7.4); Neutrophils % 68.3 % (38.7-73.9); Platelet Count 432 T/CUMM (130-400); Red Blood Count 3.59 MC/CUMM (3.8-5.5); Red Cell Distribution Width 17.8 % (9.3-17.3); White Blood Count 9.3 T/CUMM (4-12)
[2018-07-21] MEDS ORDERED: PAPAVERINE 60 MG/2 ML VIAL ONE (04:22)
[2018-07-21] MEDS ORDERED: VANCOMYCIN 1,000 MG VIAL ONE (04:23)
[2018-07-21 04:35] LABS: Calcium 9.5 MG/DL (8.5-10.1); Osmolality,Calculated 282.8 MOS/KG (273-304); Potassium 3.4 MMOL/L (3.5-5.1)
[2018-07-21] MEDS: CHLORHEXIDINE 4% SOLN 118 ML BOTTLE TOP SCH ×2 (05:00→10:30)
[2018-07-21] MEDS: METOPROLOL SUCCINATE XL 25 MG TABLET PO SCH ×2 (05:30→10:31)
[2018-07-21] MEDS ORDERED: CEFUROXIME 1,500 MG VIAL ONE (05:36)
[2018-07-21] MEDS ORDERED: DIAZEPAM 5 MG TABLET PO ONE (06:00)
[2018-07-21] MEDS ORDERED: CEFUROXIME INJ 1,500 MG in SYRINGE 1 EACH IV ONE (06:00)
[2018-07-21] MEDS ORDERED: FAMOTIDINE 20 MG TABLET PO ONE (06:00)
[2018-07-21] MEDS ORDERED: SUFentanil 50 MCG/ML AMP ONE (06:20)
[2018-07-21] MEDS ORDERED: SUFentanil 250 MCG/5 ML AMP ONE (06:20)
[2018-07-21] MEDS ORDERED: PHENYLEPHRINE DRIP 40 MG/250 ML PREMIX IV ONE (07:30)
[2018-07-21] MEDS ORDERED: CALCIUM CHLORIDE 1,000 MG/10 ML SYRINGE IV ONE (07:30)
[2018-07-21] MEDS ORDERED: NITROPRUSSIDE 50 MG/2 ML VIAL ONE (07:30)
[2018-07-21] MEDS ORDERED: SODIUM BICARBONATE 50 MEQ/50 ML SYRINGE IV ONE ×2 (07:30→11:50)
[2018-07-21] MEDS ORDERED: POTASSIUM CHLORIDE RIDER 100 ML IV ONE (07:31)
[2018-07-21] MEDS ORDERED: ALBUMIN 5% 12.5 GM/250 ML VIAL IV ONE ×2 (07:31→12:17)
[2018-07-21 07:48] LABS: ABG Base Excess 6.1 MMOL/L (-2.5-2.5); ABG PCO2 40.4 MM HG (35-48); ABG TCO2 27.5 MMOL/L (23-27); Glucose Heart Surgery 104 MG/DL (74-106); Hematocrit Heart Surgery 28.9 PERCENT (37-47); Hemoglobin Heart Surgery 9.3 G/DL (12.0-16.0); Ionized Calcium Arterial 1.18 MMOL/L (1.21-1.46); PCO2 Patient Temp Arterial 40.4 MMHG; Patient Temperature 37 CELCIUS; Potassium Heart/CVR 3.5 MMOL/L (3.5-5.1); Sodium Heart/CVR 139 MMOL/L (135-145)
[2018-07-21] MEDS: glipiZIDE 5 MG TABLET PO SCH (07:51)
[2018-07-21] MEDS: FUROSEMIDE 40 MG/4 ML VIAL IV SCH (07:51)
[2018-07-21] MEDS: INSULIN LISPRO 100 UNIT/ML SUBCUT SCH ×2 (07:51→12:43)
[2018-07-21 08:02] LABS: Apearance,Urine CLEAR (Clear); Bacteria,Urine Occasional /HPF (Few); Bilirubin,Urine Negative (Negative); Blood, Urine Negative (Negative); Glucose,Urine (UA) Negative (Negative); Ketones,Urine Negative (Negative); Nitrite,Urine Negative (Negative); Protein,Urine Negative; RBC,Urine 2 /HPF (0-4); Squamous Epithelial Cell,Urine Occasional /HPF (0-10); Urine Color Yellow (Yellow); Urine Urobilinogen < 2.0 EU/DL (0.2-1.0); WBC,Urine <1 /HPF (0-6)
[2018-07-21] MEDS ORDERED: HEPARIN/NACL 0.9% 2 UNITS/ML 500 ML IV ONE (09:13)
[2018-07-21] MEDS ORDERED: FAMOTIDINE 20 MG/2 ML VIAL IV ONE (09:14)
[2018-07-21 09:16] LABS: Hematocrit Heart Surgery 28.1 PERCENT (37-47); Hemoglobin Heart Surgery 9.1 G/DL (12.0-16.0); PCO2 Patient Temp Venous 43.4 MM HG; PH Patient Temp Venous 7.426; PO2 Patient Temp Venous 43.2 MM HG; Potassium Heart/CVR 3.6 MMOL/L (3.5-5.1); VBG Base Excess 3.9 MEQ/L (0-4); VBG HCO3 27.7 MEQ/L (24-28); VBG PCO2 47.8 MMHG (41-51); VBG PH 7.397; VBG PO2 49.6 MMHG (17-40)
[2018-07-21] MEDS ORDERED: diphenhydrAMINE 50 MG/1 ML VIAL ONE (09:29)
[2018-07-21 09:44] LABS: Hematocrit Heart Surgery 25.6 PERCENT (37-47); Hemoglobin Heart Surgery 8.2 G/DL (12.0-16.0); PCO2 Patient Temp Venous 36.7 MM HG; PH Patient Temp Venous 7.474; PO2 Patient Temp Venous 36.5 MM HG; Potassium Heart/CVR 3.6 MMOL/L (3.5-5.1); VBG Base Excess 3.5 MEQ/L (0-4); VBG HCO3 27.3 MEQ/L (24-28); VBG Oxygen Saturation 79.6 %; VBG PCO2 42.4 MMHG (41-51); VBG PH 7.429; VBG PO2 44.9 MMHG (17-40)
[2018-07-21 10:17] LABS: Hemoglobin Heart Surgery 7.7 G/DL (12.0-16.0); PCO2 Patient Temp Venous 29.6 MM HG; PH Patient Temp Venous 7.535; PO2 Patient Temp Venous 29.5 MM HG; Potassium Heart/CVR 3.7 MMOL/L (3.5-5.1); VBG Base Excess 2.9 MEQ/L (0-4); VBG HCO3 26.8 MEQ/L (24-28); VBG PCO2 37.7 MMHG (41-51); VBG PH 7.46; VBG PO2 41.8 MMHG (17-40)
[2018-07-21] MEDS: POTASSIUM CHLORIDE 20 MEQ TABLET PO SCH (10:30)
[2018-07-21] MEDS: DOCUSATE SODIUM 100 MG CAPSULE PO SCH (10:30)
[2018-07-21] MEDS: GEMFIBROZIL 600 MG TABLET PO SCH (10:31)
[2018-07-21] MEDS: CHLORHEXIDINE 0.12% ORAL RINSE 60 ML BOTTLE SWISH/SPIT SCH ×2 (10:31→21:22)
[2018-07-21] MEDS: PANTOPRAZOLE 40 MG TABLET PO SCH (10:31)
[2018-07-21 10:41] LABS: Hematocrit Heart Surgery 26.1 PERCENT (37-47); Hemoglobin Heart Surgery 8.4 G/DL (12.0-16.0); PCO2 Patient Temp Venous 29.7 MM HG; PH Patient Temp Venous 7.548; PO2 Patient Temp Venous 28.8 MM HG; Potassium Heart/CVR 3.5 MMOL/L (3.5-5.1); VBG Base Excess 3.8 MEQ/L (0-4); VBG HCO3 27.5 MEQ/L (24-28); VBG Oxygen Saturation 74.1 %; VBG PH 7.487; VBG PO2 38.1 MMHG (17-40)
[2018-07-21 11:13] LABS: Hematocrit Heart Surgery 30.2 PERCENT (37-47); Hemoglobin Heart Surgery 9.8 G/DL (12.0-16.0); PH Patient Temp Venous 7.488; PO2 Patient Temp Venous 31.3 MM HG; Potassium Heart/CVR 4.1 MMOL/L (3.5-5.1); VBG Base Excess 3.3 MEQ/L (0-4); VBG HCO3 26.9 MEQ/L (24-28); VBG Oxygen Saturation 68.4 %; VBG PCO2 38.6 MMHG (41-51); VBG PH 7.458
[2018-07-21] MEDS ORDERED: DEXTROSE 5% KCL 20 MEQ 40 MEQ/2,000 ML BAG IV ONE (11:48)
[2018-07-21] MEDS ORDERED: ALBUMIN 25% 25 GM/100 ML VIAL IV ONE (11:48)
[2018-07-21] MEDS ORDERED: MAGNESIUM SULFATE 10 GM/20 ML VIAL IV ONE (11:48)
[2018-07-21] MEDS ORDERED: MANNITOL 100 GM/500 ML BAG IV ONE (11:48)
[2018-07-21] MEDS ORDERED: FUROSEMIDE 20 MG/2 ML VIAL ONE (11:49)
[2018-07-21] MEDS ORDERED: HEPARIN 10,000 UNIT/10 ML VIAL ONE (11:49)
[2018-07-21] MEDS ORDERED: methylPREDNISolone SOD SUC 1,000 MG/8 ML VIAL ONE (11:50)
[2018-07-21] MEDS ORDERED: PROTAMINE SULFATE 250 MG/25 ML VIAL IV ONE (11:50)
[2018-07-21] MEDS ORDERED: POTASSIUM CHLORIDE 20 MEQ/10 ML VIAL ONE (11:50)
[2018-07-21 11:56] LABS: ABG Base Excess -0.8 MMOL/L (-2.5-2.5); ABG HCO3 23.8 MMOL/L (20-26); ABG Oxygen Saturation 99.6 % (95-100); ABG PCO2 36.6 MM HG (35-48); ABG PH 7.414 (7.35-7.45); ABG TCO2 21.6 MMOL/L (23-27); Glucose Heart Surgery 265 MG/DL (74-106); PCO2 Patient Temp Arterial 36.6 MMHG; PH Patient Temp Arterial 7.414; Patient Temperature 37 CELCIUS; Potassium Heart/CVR 3.5 MMOL/L (3.5-5.1); Sodium Heart/CVR 136 MMOL/L (135-145)
[2018-07-21 12:16] LABS: ABG Base Excess -0.6 MMOL/L (-2.5-2.5); ABG Oxygen Saturation 99.5 % (95-100); ABG PCO2 37.6 MM HG (35-48); ABG TCO2 21.9 MMOL/L (23-27); Glucose Heart Surgery 260 MG/DL (74-106); Hematocrit Heart Surgery 28.6 PERCENT (37-47); Hemoglobin Heart Surgery 9.2 G/DL (12.0-16.0); Ionized Calcium Arterial 1.31 MMOL/L (1.21-1.46); PCO2 Patient Temp Arterial 37.6 MMHG; Patient Temperature 37 CELCIUS; Potassium Heart/CVR 3.2 MMOL/L (3.5-5.1); Sodium Heart/CVR 138 MMOL/L (135-145)
[2018-07-21] MEDS ORDERED: DOBUTamine 500 MG/250 ML PREMIX IV ONE ×2 (12:26→13:04)
[2018-07-21] MEDS: DOBUTamine 500 MG/250 ML PREMIX IV SCH (12:45)
[2018-07-21] MEDS ORDERED: SEVOFLURANE 1 UNIT/15 MINUTE INH ONE (13:05)
[2018-07-21] MEDS ORDERED: CALCIUM CHLORIDE 1,000 MG/10 ML VIAL IV ONE (13:05)
[2018-07-21] MEDS ORDERED: PHENYLEPHRINE DRIP 20 MG/250 ML PREMIX IV ONE (13:05)
[2018-07-21] MEDS ORDERED: VECURONIUM 10 MG VIAL IV ONE (13:06)
[2018-07-21] MEDS ORDERED: PHENYLEPHRINE 10 MG/1 ML VIAL IV ONE ×2 (13:06→13:07)
[2018-07-21] MEDS ORDERED: MIDAZOLAM 10 MG/2 ML VIAL ONE (13:06)
[2018-07-21] MEDS ORDERED: AMINOCAPROIC ACID 5,000 MG/20 ML VIAL ONE (13:07)
[2018-07-21] MEDS ORDERED: ETOMIDATE 40 MG/20 ML VIAL IV ONE (13:07)
[2018-07-21] MEDS ORDERED: PROTAMINE SULFATE 50 MG/5 ML VIAL IV ONE (13:07)
[2018-07-21] MEDS ORDERED: PHENYLEPHRINE 1 MG/10 ML SYRINGE IV ONE (13:07)
[2018-07-21] MEDS ORDERED: SODIUM CHLORIDE 0.9% 100 ML IV ONE (13:08)
[2018-07-21] MEDS ORDERED: SODIUM CHLORIDE 0.9% 1,000 ML IV ONE (13:08)
[2018-07-21] MEDS ORDERED: LACTATED RINGERS 1,000 ML IV ONE (13:08)
[2018-07-21] MEDS ORDERED: SODIUM CHLORIDE 0.9% 250 ML IV ONE (13:08)
[2018-07-21] MEDS ORDERED: VECURONIUM 10 MG VIAL IV PRN ×2 (13:19)
[2018-07-21] MEDS ORDERED: INSULIN REGULAR 100 UNIT/ML IV ONE (13:19)
[2018-07-21] MEDS ORDERED: MIDAZOLAM 10 MG/2 ML VIAL IV PRN (13:19)
[2018-07-21] MEDS ORDERED: CALCIUM CHLORIDE 1,000 MG/10 ML SYRINGE IV PRN (13:19)
[2018-07-21] MEDS ORDERED: INSULIN REGULAR 100 UNIT/ML IV PRN (13:19)
[2018-07-21] MEDS ORDERED: NITROPRUSSIDE 100 MG in DEXTROSE 5% 250 ML IV PRN (13:19)
[2018-07-21] MEDS ORDERED: MAGNESIUM SULF RIDER 4 GM in PREMIX 1 EACH IV PRN (13:19)
[2018-07-21] MEDS ORDERED: PHENYLEPHRINE DRIP 40 MG/250 ML PREMIX IV PRN (13:19)
[2018-07-21] MEDS ORDERED: ACETAMINOPHEN 650 MG SUPP RECTAL PRN (13:19)
[2018-07-21] MEDS ORDERED: DEXTROSE 50% 25 GM/50 ML SYRINGE IV PRN ×2 (13:19)
[2018-07-21] MEDS ORDERED: MORPHINE 10 MG/1 ML VIAL IV PRN (13:19)
[2018-07-21] MEDS ORDERED: ONDANSETRON 4 MG/2 ML VIAL IV PRN (13:19)
[2018-07-21] MEDS ORDERED: INSULIN REGULAR DRIP 100 ML IV SCH (13:19)
[2018-07-21] MEDS ORDERED: MAGNESIUM SULF RIDER 2 GM in PREMIX 1 EACH IV PRN (13:19)
[2018-07-21 13:23] LABS: ABG Base Excess 0.2 MMOL/L (-2.5-2.5); ABG HCO3 24.5 MMOL/L (20-26); ABG Oxygen Saturation 97.5 % (95-100); ABG PCO2 45.1 MM HG (35-48); ABG PH 7.369 (7.35-7.45); ABG TCO2 21.9 MMOL/L (23-27); Glucose Heart Surgery 227 MG/DL (74-106); Hematocrit Heart Surgery 49.3 PERCENT (37-47); Hemoglobin Heart Surgery 16.1 G/DL (12.0-16.0); Potassium Heart/CVR 3.3 MMOL/L (3.5-5.1)
[2018-07-21 13:26] LABS: Basophils % 0.2 % (0.0-0.8); Hematocrit 34.3 VOL% (35.7-47.0); Hemoglobin 10.7 GM/DL (12.0-16.0); Immature Granulocytes % 0.9 %; Immature Granulocytes Absolute 0.13 #; Lymphocytes # 0.7 10*3/uL (1.4-4.0); Lymphocytes % 4.8 % (21.3-54.2); Mean Corpuscular HGB Conc 31.2 GM/DL (32-36); Mean Corpuscular Hemoglobin 27 PG (27-34); Mean Corpuscular Volume 86.8 FL (87-102); Mean Platelet Volume 9.2 FL (9.6-12.0); Monocytes # 0.8 10*3/uL (0.11-0.8); Monocytes % 5.8 % (1.7-12.7); NRBC # 0.02 10*3/uL; Neutrophils # 12.3 10*3/uL (1.4-7.4); Neutrophils % 88.3 % (38.7-73.9); Platelet Count 279 T/CUMM (130-400); Red Blood Count 3.95 MC/CUMM (3.8-5.5); Red Cell Distribution Width 17.3 % (9.3-17.3); White Blood Count 13.9 T/CUMM (4-12)
[2018-07-21 13:37] LABS: INR 1.1; PT Patient Result 11.7 SECS
[2018-07-21 13:44] LABS: CKMB % 6.8 %
[2018-07-21 13:50] LABS: Troponin I 4.37 NG/ML (0.00-0.045)
[2018-07-21] MEDS: MIDAZOLAM 2 MG/2 ML VIAL IV PRN ×3 (14:09→17:42)
[2018-07-21] MEDS: SODIUM CHLORIDE 0.45% 1,000 ML IV SCH ×2 (14:11)
[2018-07-21] MEDS: LACTATED RINGERS 250 ML IV PRN ×4 (14:12→16:40)
[2018-07-21 14:22] LABS: Anisocytosis 1+; Band Neutrophils 4 % (0-10); Hypochromasia Slight; Lymphocytes 7 % (20-55); Platelet Estimate Adequate; Reactive Lymphocytes Slight; Segmented Neutrophils 84 % (50-85); Total Cells Counted 100
[2018-07-21 14:30] LABS: Albumin 3.1 G/DL (3.4-5.0); Bilirubin,Total 0.7 MG/DL (0.2-1.0); Calcium 8.8 MG/DL (8.5-10.1); Osmolality,Calculated 287.5 MOS/KG (273-304); Potassium 3.4 MMOL/L (3.5-5.1); Total Protein 6.8 G/DL (6.4-8.3)
[2018-07-21] MEDS: KETOROLAC 15 MG/1 ML VIAL IV SCH ×2 (14:51→19:03)
[2018-07-21] MEDS: ALBUMIN 5% 12.5 GM in PREMIX 1 EACH IV PRN ×2 (14:53→15:34)
[2018-07-21] MEDS: POTASSIUM CHLORIDE RIDER 20 MEQ in PREMIX 1 EACH IV PRN ×3 (14:56→20:31)
[2018-07-21 15:17] LABS: ABG Base Excess 1.2 MMOL/L (-2.5-2.5); ABG HCO3 25.5 MMOL/L (20-26); ABG Oxygen Saturation 98.3 % (95-100); ABG PCO2 44.5 MM HG (35-48); ABG PH 7.388 (7.35-7.45); ABG TCO2 22.2 MMOL/L (23-27)
[2018-07-21 16:16] LABS: ABG Base Excess 1.3 MMOL/L (-2.5-2.5); ABG HCO3 25.5 MMOL/L (20-26); ABG Oxygen Saturation 98.3 % (95-100); ABG PCO2 46.6 MM HG (35-48); ABG PH 7.375 (7.35-7.45); ABG TCO2 22.9 MMOL/L (23-27); Glucose Heart Surgery 170 MG/DL (74-106); Potassium Heart/CVR 4.5 MMOL/L (3.5-5.1)
[2018-07-21 18:23] LABS: ABG Base Excess 2.6 MMOL/L (-2.5-2.5); ABG HCO3 26.7 MMOL/L (20-26); ABG Oxygen Saturation 98.4 % (95-100); ABG PCO2 39.9 MM HG (35-48); ABG PH 7.437 (7.35-7.45); ABG TCO2 23.5 MMOL/L (23-27); Glucose Heart Surgery 158 MG/DL (74-106); Hematocrit Heart Surgery 39.4 PERCENT (37-47); Hemoglobin Heart Surgery 12.8 G/DL (12.0-16.0); Potassium Heart/CVR 3.9 MMOL/L (3.5-5.1)
[2018-07-21 20:17] LABS: ABG Base Excess 3.2 MMOL/L (-2.5-2.5); ABG HCO3 27.2 MMOL/L (20-26); ABG Oxygen Saturation 98.7 % (95-100); ABG PCO2 37.8 MM HG (35-48); ABG TCO2 22.4 MMOL/L (23-27); Glucose Heart Surgery 145 MG/DL (74-106); Hematocrit Heart Surgery 48.3 PERCENT (37-47); Hemoglobin Heart Surgery 15.8 G/DL (12.0-16.0); Potassium Heart/CVR 3.8 MMOL/L (3.5-5.1)
[2018-07-21] MEDS ORDERED: FUROSEMIDE 40 MG/4 ML VIAL IV PRN (20:20)
[2018-07-21 20:35] LABS: Basophils % 0.1 % (0.0-0.8); Hematocrit 24.9 VOL% (35.7-47.0); Immature Granulocytes % 0.7 %; Immature Granulocytes Absolute 0.07 #; Lymphocytes # 0.9 10*3/uL (1.4-4.0); Lymphocytes % 8.8 % (21.3-54.2); Mean Corpuscular HGB Conc 32.1 GM/DL (32-36); Mean Corpuscular Hemoglobin 28 PG (27-34); Mean Corpuscular Volume 86.8 FL (87-102); Mean Platelet Volume 9.8 FL (9.6-12.0); Monocytes # 0.6 10*3/uL (0.11-0.8); Monocytes % 5.9 % (1.7-12.7); Neutrophils # 8.3 10*3/uL (1.4-7.4); Neutrophils % 84.5 % (38.7-73.9); Platelet Count 295 T/CUMM (130-400); Red Blood Count 2.87 MC/CUMM (3.8-5.5); Red Cell Distribution Width 17.2 % (9.3-17.3); White Blood Count 9.9 T/CUMM (4-12)
[2018-07-21] MEDS: POTASSIUM CHLORIDE RIDER 10 MEQ in PREMIX 1 EACH IV PRN (21:09)
[2018-07-21 21:47] LABS: Basophils % 0.1 % (0.0-0.8); Hematocrit 24.7 VOL% (35.7-47.0); Hemoglobin 7.8 GM/DL (12.0-16.0); Immature Granulocytes % 0.8 %; Immature Granulocytes Absolute 0.08 #; Lymphocytes % 9.8 % (21.3-54.2); Mean Corpuscular HGB Conc 31.6 GM/DL (32-36); Mean Corpuscular Hemoglobin 27 PG (27-34); Mean Corpuscular Volume 86.7 FL (87-102); Mean Platelet Volume 9.2 FL (9.6-12.0); Monocytes # 0.7 10*3/uL (0.11-0.8); Monocytes % 7.4 % (1.7-12.7); Neutrophils # 8.1 10*3/uL (1.4-7.4); Neutrophils % 81.9 % (38.7-73.9); Platelet Count 284 T/CUMM (130-400); Red Blood Count 2.85 MC/CUMM (3.8-5.5); Red Cell Distribution Width 17.3 % (9.3-17.3); White Blood Count 9.8 T/CUMM (4-12)
[2018-07-21 22:10] LABS: Troponin I 6.23 NG/ML (0.00-0.045)
[2018-07-21 22:49] LABS: ABG Base Excess 2.8 MMOL/L (-2.5-2.5); ABG HCO3 26.2 MMOL/L (20-26); ABG Oxygen Saturation 98.4 % (95-100); ABG PCO2 35.8 MM HG (35-48); ABG PH 7.483 (7.35-7.45); ABG PO2 139.2 MM HG (80-95); ABG TCO2 27.3 MMOL/L (23-27); Glucose Heart Surgery 104 MG/DL (74-106); Potassium Heart/CVR 4.1 MMOL/L (3.5-5.1)
[2018-07-21 23:50] LABS: ABG Base Excess 2.6 MMOL/L (-2.5-2.5); ABG HCO3 26.8 MMOL/L (20-26); ABG Oxygen Saturation 99.1 % (95-100); ABG PCO2 36.4 MM HG (35-48); ABG PH 7.466 (7.35-7.45); ABG TCO2 23.9 MMOL/L (23-27); Glucose Heart Surgery 101 MG/DL (74-106); Hematocrit Heart Surgery 30.2 PERCENT (37-47); Hemoglobin Heart Surgery 9.8 G/DL (12.0-16.0); Potassium Heart/CVR 4.1 MMOL/L (3.5-5.1)
[2018-07-22] MEDS: VANCOMYCIN INJ 1,000 MG in SODIUM CHLORIDE 0.9% 250 ML IV SCH ×2 (00:29→13:44)
[2018-07-22 00:31] LABS: ABG HCO3 26.2 MMOL/L (20-26); ABG Oxygen Saturation 98.6 % (95-100); ABG PCO2 40.9 MM HG (35-48); ABG PH 7.421 (7.35-7.45); ABG TCO2 23.8 MMOL/L (23-27); Glucose Heart Surgery 91 MG/DL (74-106); Potassium Heart/CVR 4.1 MMOL/L (3.5-5.1)
[2018-07-22] MEDS: KETOROLAC 15 MG/1 ML VIAL IV SCH ×4 (01:03→19:40)
[2018-07-22] MEDS: POTASSIUM CHLORIDE RIDER 20 MEQ in PREMIX 1 EACH IV PRN ×2 (01:16→04:46)
[2018-07-22 04:12] LABS: ABG Base Excess 2.4 MMOL/L (-2.5-2.5); ABG HCO3 26.4 MMOL/L (20-26); ABG Oxygen Saturation 97.1 % (95-100); ABG PCO2 38.7 MM HG (35-48); ABG PH 7.452 (7.35-7.45); ABG PO2 101.1 MM HG (80-95); ABG TCO2 27.6 MMOL/L (23-27); Glucose Heart Surgery 102 MG/DL (74-106); Hemoglobin Heart Surgery 9.8 G/DL (12.0-16.0); Potassium Heart/CVR 4.4 MMOL/L (3.5-5.1)
[2018-07-22 04:21] LABS: Basophils % 0.2 % (0.0-0.8); Hematocrit 29.5 VOL% (35.7-47.0); Hemoglobin 9.5 GM/DL (12.0-16.0); Immature Granulocytes % 0.6 %; Immature Granulocytes Absolute 0.08 #; Lymphocytes # 1.2 10*3/uL (1.4-4.0); Lymphocytes % 9.7 % (21.3-54.2); Mean Corpuscular HGB Conc 32.2 GM/DL (32-36); Mean Corpuscular Hemoglobin 28 PG (27-34); Mean Corpuscular Volume 86.5 FL (87-102); Mean Platelet Volume 9.5 FL (9.6-12.0); Monocytes # 1.2 10*3/uL (0.11-0.8); Monocytes % 9.3 % (1.7-12.7); Neutrophils % 80.2 % (38.7-73.9); Platelet Count 279 T/CUMM (130-400); Red Blood Count 3.41 MC/CUMM (3.8-5.5); Red Cell Distribution Width 16.2 % (9.3-17.3); White Blood Count 12.4 T/CUMM (4-12)
[2018-07-22 04:42] LABS: CKMB % 3.8 %
[2018-07-22 04:43] LABS: Bilirubin,Direct 0.23 MG/DL (0.0-0.20); Bilirubin,Total 0.7 MG/DL (0.2-1.0); Calcium 9.1 MG/DL (8.5-10.1); Osmolality,Calculated 286.3 MOS/KG (273-304); Potassium 4.4 MMOL/L (3.5-5.1); Total Protein 6.5 G/DL (6.4-8.3); Troponin I 4.49 NG/ML (0.00-0.045)
[2018-07-22 05:11] LABS: ABG Base Excess 1.8 MMOL/L (-2.5-2.5); ABG HCO3 26.1 MMOL/L (20-26); ABG Oxygen Saturation 96.2 % (95-100); ABG PCO2 39.8 MM HG (35-48); ABG PH 7.435 (7.35-7.45); ABG PO2 87.7 MM HG (80-95); ABG TCO2 27.3 MMOL/L (23-27); Glucose Heart Surgery 107 MG/DL (74-106); Hemoglobin Heart Surgery 11.3 G/DL (12.0-16.0); Potassium Heart/CVR 4.8 MMOL/L (3.5-5.1)
[2018-07-22 06:01] LABS: ABG HCO3 25.3 MMOL/L (20-26); ABG Oxygen Saturation 96.4 % (95-100); ABG PH 7.414 (7.35-7.45); ABG PO2 82.5 MM HG (80-95); ABG TCO2 23.3 MMOL/L (23-27); Glucose Heart Surgery 110 MG/DL (74-106); Hematocrit Heart Surgery 30.4 PERCENT (37-47); Hemoglobin Heart Surgery 9.8 G/DL (12.0-16.0); Potassium Heart/CVR 4.9 MMOL/L (3.5-5.1)
[2018-07-22 07:53] LABS: ABG Base Excess 1.5 MMOL/L (-2.5-2.5); ABG HCO3 25.7 MMOL/L (20-26); ABG Oxygen Saturation 97.8 % (95-100); ABG PCO2 36.4 MM HG (35-48); ABG PH 7.449 (7.35-7.45); ABG PO2 97.9 MM HG (80-95); Glucose Heart Surgery 104 MG/DL (74-106); Hematocrit Heart Surgery 30.3 PERCENT (37-47); Hemoglobin Heart Surgery 9.8 G/DL (12.0-16.0); Potassium Heart/CVR 4.8 MMOL/L (3.5-5.1)
[2018-07-22] MEDS: INSULIN REGULAR 100 UNIT/ML SUBCUT SCH ×4 (08:40→22:25)
[2018-07-22] MEDS: POTASSIUM CHLORIDE RIDER 10 MEQ in PREMIX 1 EACH IV PRN (08:55)
[2018-07-22] MEDS: ALBUMIN 5% 12.5 GM in PREMIX 1 EACH IV PRN ×2 (09:40→10:21)
[2018-07-22 09:54] LABS: ABG Base Excess 1.2 MMOL/L (-2.5-2.5); ABG HCO3 25.5 MMOL/L (20-26); ABG Oxygen Saturation 97.9 % (95-100); ABG PCO2 39.7 MM HG (35-48); ABG PH 7.419 (7.35-7.45); ABG TCO2 23.5 MMOL/L (23-27); Glucose Heart Surgery 106 MG/DL (74-106); Hematocrit Heart Surgery 29.5 PERCENT (37-47); Hemoglobin Heart Surgery 9.5 G/DL (12.0-16.0); Potassium Heart/CVR 5.2 MMOL/L (3.5-5.1)
[2018-07-22] MEDS: CHLORHEXIDINE 0.12% ORAL RINSE 60 ML BOTTLE SWISH/SPIT SCH ×2 (11:23→19:40)
[2018-07-22] MEDS: SIMVASTATIN 40 MG TABLET PO SCH (11:23)
[2018-07-22] MEDS ORDERED: SODIUM CHLORIDE 0.9% 250 ML IV ONE (13:19)
[2018-07-22] MEDS: glipiZIDE 5 MG TABLET PO SCH (16:02)
[2018-07-22] MEDS: GEMFIBROZIL 600 MG TABLET PO SCH (16:02)
[2018-07-22] MEDS: MORPHINE 4 MG/1 ML VIAL IV PRN (20:20)
[2018-07-22] MEDS: DOBUTamine 500 MG/250 ML PREMIX IV SCH (21:00)
[2018-07-22] MEDS: SODIUM CHLORIDE 0.45% 1,000 ML IV SCH ×2 (22:22→22:23)
[2018-07-22] MEDS: traZODone 50 MG TABLET PO SCH (22:25)
[2018-07-23] MEDS: MORPHINE 4 MG/1 ML VIAL IV PRN ×4 (00:33→21:27)
[2018-07-23] MEDS: VANCOMYCIN INJ 1,000 MG in SODIUM CHLORIDE 0.9% 250 ML IV SCH ×2 (01:25→13:00)
[2018-07-23] MEDS: INSULIN REGULAR 100 UNIT/ML SUBCUT SCH ×7 (03:38→23:27)
[2018-07-23 05:16] LABS: Basophils % 0.2 % (0.0-0.8); Eosinophils % 0.2 % (0.00-10.9); Hematocrit 30.6 VOL% (35.7-47.0); Hemoglobin 9.7 GM/DL (12.0-16.0); Immature Granulocytes % 0.7 %; Immature Granulocytes Absolute 0.09 #; Lymphocytes # 1.4 10*3/uL (1.4-4.0); Lymphocytes % 10.5 % (21.3-54.2); Mean Corpuscular HGB Conc 31.7 GM/DL (32-36); Mean Corpuscular Hemoglobin 28 PG (27-34); Mean Corpuscular Volume 89.2 FL (87-102); Mean Platelet Volume 9.7 FL (9.6-12.0); Monocytes # 1.6 10*3/uL (0.11-0.8); Monocytes % 12.3 % (1.7-12.7); Neutrophils % 76.1 % (38.7-73.9); Platelet Count 281 T/CUMM (130-400); Red Blood Count 3.43 MC/CUMM (3.8-5.5); Red Cell Distribution Width 16.8 % (9.3-17.3); White Blood Count 13.1 T/CUMM (4-12)
[2018-07-23 05:41] LABS: Albumin 3.2 G/DL (3.4-5.0); Bilirubin,Direct 0.22 MG/DL (0.0-0.20); Bilirubin,Total 0.6 MG/DL (0.2-1.0); Calcium 8.8 MG/DL (8.5-10.1); Osmolality,Calculated 285.5 MOS/KG (273-304); Potassium 4.6 MMOL/L (3.5-5.1); Total Protein 6.8 G/DL (6.4-8.3)
[2018-07-23] MEDS: GEMFIBROZIL 600 MG TABLET PO SCH ×2 (07:28→16:32)
[2018-07-23] MEDS: glipiZIDE 5 MG TABLET PO SCH ×2 (07:29→16:32)
[2018-07-23] MEDS ORDERED: FUROSEMIDE 40 MG/4 ML VIAL IV ONE (08:06)
[2018-07-23] MEDS: POLYETHYLENE GLYCOL POWDER 17 GM PACK PO PRN (08:43)
[2018-07-23] MEDS: CHLORHEXIDINE 0.12% ORAL RINSE 60 ML BOTTLE SWISH/SPIT SCH ×2 (10:17→21:29)
[2018-07-23] MEDS: SIMVASTATIN 40 MG TABLET PO SCH (10:17)
[2018-07-23] MEDS: DOCUSATE SODIUM 100 MG CAPSULE PO SCH ×2 (10:17→21:27)
[2018-07-23] MEDS: POTASSIUM CHLORIDE RIDER 10 MEQ in PREMIX 1 EACH IV PRN (11:51)
[2018-07-23] MEDS: SODIUM CHLORIDE 0.45% 1,000 ML IV SCH (12:20)
[2018-07-23] MEDS: LACTULOSE 20 GM/30 ML UDCUP PO PRN (12:59)
[2018-07-23] MEDS: ACETAMINOPHEN 325 MG TABLET PO PRN (16:20)
[2018-07-23] MEDS: traZODone 50 MG TABLET PO SCH (21:27)
[2018-07-24] MEDS: MORPHINE 4 MG/1 ML VIAL IV PRN ×2 (01:22→06:50)
[2018-07-24] MEDS: INSULIN REGULAR 100 UNIT/ML SUBCUT SCH ×5 (04:35→21:50)
[2018-07-24 05:35] LABS: Basophils % 0.2 % (0.0-0.8); Eosinophils # 0.1 10*3/uL (0.0-0.87); Eosinophils % 1.1 % (0.00-10.9); Hematocrit 29.5 VOL% (35.7-47.0); Hemoglobin 9.2 GM/DL (12.0-16.0); Immature Granulocytes % 0.7 %; Immature Granulocytes Absolute 0.09 #; Lymphocytes # 1.5 10*3/uL (1.4-4.0); Mean Corpuscular HGB Conc 31.2 GM/DL (32-36); Mean Corpuscular Hemoglobin 28 PG (27-34); Mean Corpuscular Volume 89.9 FL (87-102); Mean Platelet Volume 9.7 FL (9.6-12.0); Monocytes # 1.4 10*3/uL (0.11-0.8); Monocytes % 11.5 % (1.7-12.7); NRBC # 0.02 10*3/uL; Neutrophils # 9.1 10*3/uL (1.4-7.4); Neutrophils % 74.5 % (38.7-73.9); Platelet Count 273 T/CUMM (130-400); Red Blood Count 3.28 MC/CUMM (3.8-5.5); Red Cell Distribution Width 16.6 % (9.3-17.3); White Blood Count 12.2 T/CUMM (4-12)
[2018-07-24 06:07] LABS: Bilirubin,Direct 0.22 MG/DL (0.0-0.20); Osmolality,Calculated 285.4 MOS/KG (273-304); Potassium 4.1 MMOL/L (3.5-5.1); Total Protein 6.8 G/DL (6.4-8.3)
[2018-07-24] MEDS: glipiZIDE 5 MG TABLET PO SCH ×2 (08:42→17:30)
[2018-07-24] MEDS: DOCUSATE SODIUM 100 MG CAPSULE PO SCH (08:42)
[2018-07-24] MEDS: POLYETHYLENE GLYCOL POWDER 17 GM PACK PO PRN (08:42)
[2018-07-24] MEDS: GEMFIBROZIL 600 MG TABLET PO SCH ×2 (08:42→17:30)
[2018-07-24] MEDS: SIMVASTATIN 40 MG TABLET PO SCH (08:42)
[2018-07-24] MEDS ORDERED: FUROSEMIDE 40 MG/4 ML VIAL IV ONE ×2 (10:00→14:00)
[2018-07-24] MEDS: ACETAMINOPHEN 325 MG TABLET PO PRN (12:08)
[2018-07-24] MEDS: CHLORHEXIDINE 0.12% ORAL RINSE 60 ML BOTTLE SWISH/SPIT SCH ×2 (12:49→21:50)
[2018-07-24] MEDS ORDERED: BISACODYL 10 MG SUPP RECTAL ONE (13:14)
[2018-07-24] MEDS ORDERED: ONDANSETRON 4 MG/2 ML VIAL IV PRN (13:17)
[2018-07-24] MEDS ORDERED: DEXTROSE 50% 25 GM/50 ML SYRINGE IV PRN ×2 (13:17)
[2018-07-24] MEDS ORDERED: ALUMINUM/MAGNES/SIMETH MAX STR 30 ML UDCUP PO PRN (13:17)
[2018-07-24] MEDS ORDERED: MAGNESIUM HYDROXIDE SUSP 30 ML UDCUP PO PRN (13:17)
[2018-07-24] MEDS ORDERED: GLUCAGON 1 MG VIAL IM PRN ×2 (13:17)
[2018-07-24] MEDS ORDERED: ACETAMINOPHEN 325 MG TABLET PO PRN (13:17)
[2018-07-24] MEDS ORDERED: ZALEPLON 5 MG CAPSULE PO PRN (13:17)
[2018-07-24] MEDS ORDERED: MAGNESIUM SULF RIDER 2 GM in PREMIX 1 EACH IV PRN (13:17)
[2018-07-24] MEDS ORDERED: MAGNESIUM SULF RIDER 4 GM in PREMIX 1 EACH IV PRN (13:17)
[2018-07-24] MEDS ORDERED: SODIUM CHLOR 0.45% KCL 20 MEQ 20 MEQ/1,000 ML BAG IV SCH (13:17)
[2018-07-24] MEDS: ALBUTEROL/IPRATROPIUM 3 ML NEB RESP TX SCH ×2 (14:58→18:40)
[2018-07-24 19:58] LABS: Apearance,Urine CLEAR (Clear); Bilirubin,Urine Negative (Negative); Blood, Urine Negative (Negative); Glucose,Urine (UA) Negative (Negative); Hyaline Casts,Urine 22 /LPF (0-3); Ketones,Urine Negative (Negative); Mucus,Urine Occasional /LPF (Occasional); Nitrite,Urine Negative (Negative); Protein,Urine Negative; RBC,Urine 1 /HPF (0-4); Squamous Epithelial Cell,Urine Occasional /HPF (0-10); Urine Color Yellow (Yellow); Urine Urobilinogen < 2.0 EU/DL (0.2-1.0); WBC,Urine <1 /HPF (0-6)
[2018-07-24] MEDS: traZODone 50 MG TABLET PO SCH (21:50)
[2018-07-25] MEDS: ALBUTEROL/IPRATROPIUM 3 ML NEB RESP TX SCH ×4 (00:22→20:00)
[2018-07-25] MEDS: INSULIN REGULAR 100 UNIT/ML SUBCUT SCH ×5 (00:57→16:06)
[2018-07-25] MEDS ORDERED: FUROSEMIDE 40 MG/4 ML VIAL IV ONE ×3 (01:00→15:00)
[2018-07-25 05:42] LABS: Basophils % 0.3 % (0.0-0.8); Eosinophils # 0.3 10*3/uL (0.0-0.87); Eosinophils % 2.4 % (0.00-10.9); Hematocrit 28.5 VOL% (35.7-47.0); Immature Granulocytes % 0.8 %; Immature Granulocytes Absolute 0.09 #; Lymphocytes # 1.8 10*3/uL (1.4-4.0); Lymphocytes % 16.5 % (21.3-54.2); Mean Corpuscular HGB Conc 31.6 GM/DL (32-36); Mean Corpuscular Hemoglobin 28 PG (27-34); Mean Corpuscular Volume 89.1 FL (87-102); Mean Platelet Volume 10.2 FL (9.6-12.0); Monocytes # 1.2 10*3/uL (0.11-0.8); Monocytes % 11.2 % (1.7-12.7); NRBC # 0.04 10*3/uL; Neutrophils # 7.6 10*3/uL (1.4-7.4); Neutrophils % 68.8 % (38.7-73.9); Platelet Count 330 T/CUMM (130-400); Red Cell Distribution Width 16.5 % (9.3-17.3)
[2018-07-25 06:03] LABS: Alanine Aminotransferase 26 U/L (13-56); Albumin 2.9 G/DL (3.4-5.0); Alkaline Phosphatase 110 U/L (45-117); Aspartate Amino Transferase 24 U/L (0-37); Bilirubin,Indirect 0.7 MG/DL (0.0-1.0); Blood Urea Nitrogen 29 MG/DL (7-18); Calcium 8.8 MG/DL (8.5-10.1); Glucose 72 MG/DL (74-106); Osmolality,Calculated 281.5 MOS/KG (273-304); Potassium 3.7 MMOL/L (3.5-5.1); Sodium 139 MMOL/L (136-145); Total Protein 6.7 G/DL (6.4-8.3)
[2018-07-25 06:06] LABS: Troponin I 0.453 NG/ML (0.00-0.045)
[2018-07-25] MEDS: KETOROLAC 30 MG/1 ML VIAL IV PRN (06:38)
[2018-07-25] MEDS: POTASSIUM CHLORIDE 20 MEQ TABLET PO PRN ×2 (06:50→09:44)
[2018-07-25] MEDS: ASPIRIN EC 325 MG TABLET PO SCH (09:43)
[2018-07-25] MEDS: SIMVASTATIN 40 MG TABLET PO SCH (09:43)
[2018-07-25] MEDS: glipiZIDE 5 MG TABLET PO SCH ×2 (09:44→16:06)
[2018-07-25] MEDS: DOCUSATE SODIUM 100 MG CAPSULE PO SCH (09:45)
[2018-07-25] MEDS: FERROUS SULFATE 325 MG TABLET PO SCH (09:45)
[2018-07-25] MEDS: PANTOPRAZOLE 40 MG TABLET PO SCH (09:45)
[2018-07-25] MEDS: GEMFIBROZIL 600 MG TABLET PO SCH ×2 (09:46→16:06)
[2018-07-25] MEDS: oxyCODONE/ACETAMINOPHEN 5-325 MG TABLET PO PRN ×2 (09:46→16:16)
[2018-07-25] MEDS: CARVEDILOL 3.125 MG TABLET PO SCH (09:46)
[2018-07-25] MEDS: CHLORHEXIDINE 0.12% ORAL RINSE 60 ML BOTTLE SWISH/SPIT SCH (09:49)
[2018-07-26] MEDS: ALBUTEROL/IPRATROPIUM 3 ML NEB RESP TX SCH ×4 (00:38→19:35)
[2018-07-26] MEDS: CARVEDILOL 3.125 MG TABLET PO SCH ×3 (00:45→21:31)
[2018-07-26] MEDS: CHLORHEXIDINE 0.12% ORAL RINSE 60 ML BOTTLE SWISH/SPIT SCH ×3 (00:45→22:26)
[2018-07-26] MEDS: traZODone 50 MG TABLET PO SCH ×2 (00:45→21:31)
[2018-07-26] MEDS: INSULIN REGULAR 100 UNIT/ML SUBCUT SCH ×5 (00:45→21:32)
[2018-07-26] MEDS: oxyCODONE/ACETAMINOPHEN 5-325 MG TABLET PO PRN ×3 (01:46→21:38)
[2018-07-26] MEDS: KETOROLAC 30 MG/1 ML VIAL IV PRN (04:21)
[2018-07-26 04:41] LABS: Basophils % 0.3 % (0.0-0.8); Eosinophils # 0.3 10*3/uL (0.0-0.87); Eosinophils % 2.6 % (0.00-10.9); Hematocrit 29.5 VOL% (35.7-47.0); Hemoglobin 9.2 GM/DL (12.0-16.0); Immature Granulocytes % 0.8 %; Immature Granulocytes Absolute 0.09 #; Lymphocytes # 1.6 10*3/uL (1.4-4.0); Lymphocytes % 13.9 % (21.3-54.2); Mean Corpuscular HGB Conc 31.2 GM/DL (32-36); Mean Corpuscular Hemoglobin 28 PG (27-34); Mean Corpuscular Volume 88.3 FL (87-102); Mean Platelet Volume 9.8 FL (9.6-12.0); Monocytes # 1.3 10*3/uL (0.11-0.8); Monocytes % 11.1 % (1.7-12.7); NRBC # 0.04 10*3/uL; Neutrophils # 8.4 10*3/uL (1.4-7.4); Neutrophils % 71.3 % (38.7-73.9); Platelet Count 396 T/CUMM (130-400); Red Blood Count 3.34 MC/CUMM (3.8-5.5); Red Cell Distribution Width 16.7 % (9.3-17.3); White Blood Count 11.8 T/CUMM (4-12)
[2018-07-26 05:02] LABS: Calcium 8.8 MG/DL (8.5-10.1); Osmolality,Calculated 285.5 MOS/KG (273-304); Potassium 3.7 MMOL/L (3.5-5.1)
[2018-07-26 05:11] LABS: Alanine Aminotransferase 31 U/L (13-56); Albumin 2.8 G/DL (3.4-5.0); Alkaline Phosphatase 132 U/L (45-117); Aspartate Amino Transferase 25 U/L (0-37); Bilirubin,Indirect 0.7 MG/DL (0.0-1.0); Blood Urea Nitrogen 34 MG/DL (7-18); Calcium 8.8 MG/DL (8.5-10.1); Glucose 110 MG/DL (74-106); Osmolality,Calculated 285.5 MOS/KG (273-304); Potassium 3.7 MMOL/L (3.5-5.1); Sodium 139 MMOL/L (136-145); Total Protein 6.8 G/DL (6.4-8.3); Troponin I 0.227 NG/ML (0.00-0.045)
[2018-07-26] MEDS: DOCUSATE SODIUM 100 MG CAPSULE PO SCH (09:32)
[2018-07-26] MEDS: POTASSIUM CHLORIDE 20 MEQ TABLET PO PRN ×2 (09:32→14:19)
[2018-07-26] MEDS: SIMVASTATIN 40 MG TABLET PO SCH (09:33)
[2018-07-26] MEDS: PANTOPRAZOLE 40 MG TABLET PO SCH (09:33)
[2018-07-26] MEDS: GEMFIBROZIL 600 MG TABLET PO SCH ×2 (09:33→17:17)
[2018-07-26] MEDS: ASPIRIN EC 325 MG TABLET PO SCH (09:33)
[2018-07-26] MEDS: FERROUS SULFATE 325 MG TABLET PO SCH (09:33)
[2018-07-26] MEDS: glipiZIDE 5 MG TABLET PO SCH ×2 (10:30→17:17)
[2018-07-26] MEDS ORDERED: TUBERCULIN SKIN TEST 0.1 ML SYRINGE INTRADERM ONE (13:22)
[2018-07-27] MEDS: ALBUTEROL/IPRATROPIUM 3 ML NEB RESP TX SCH ×4 (00:37→18:50)
[2018-07-27] MEDS: oxyCODONE/ACETAMINOPHEN 5-325 MG TABLET PO PRN ×3 (02:19→21:45)
[2018-07-27 04:46] LABS: Basophils # 0.1 10*3/uL (0.0-0.2); Basophils % 0.4 % (0.0-0.8); Eosinophils # 0.3 10*3/uL (0.0-0.87); Eosinophils % 2.6 % (0.00-10.9); Hematocrit 27.5 VOL% (35.7-47.0); Hemoglobin 8.5 GM/DL (12.0-16.0); Immature Granulocytes % 1.1 %; Immature Granulocytes Absolute 0.12 #; Lymphocytes # 1.7 10*3/uL (1.4-4.0); Lymphocytes % 14.8 % (21.3-54.2); Mean Corpuscular HGB Conc 30.9 GM/DL (32-36); Mean Corpuscular Hemoglobin 28 PG (27-34); Mean Corpuscular Volume 89.6 FL (87-102); Mean Platelet Volume 9.7 FL (9.6-12.0); Monocytes # 1.5 10*3/uL (0.11-0.8); Monocytes % 12.7 % (1.7-12.7); NRBC # 0.03 10*3/uL; Neutrophils # 7.8 10*3/uL (1.4-7.4); Neutrophils % 68.4 % (38.7-73.9); Platelet Count 421 T/CUMM (130-400); Red Blood Count 3.07 MC/CUMM (3.8-5.5); Red Cell Distribution Width 16.7 % (9.3-17.3); White Blood Count 11.4 T/CUMM (4-12)
[2018-07-27 04:57] LABS: Calcium 8.8 MG/DL (8.5-10.1); Osmolality,Calculated 283.5 MOS/KG (273-304); Potassium 4.2 MMOL/L (3.5-5.1)
[2018-07-27] MEDS: PANTOPRAZOLE 40 MG TABLET PO SCH (08:50)
[2018-07-27] MEDS: ASPIRIN EC 325 MG TABLET PO SCH (08:50)
[2018-07-27] MEDS: FERROUS SULFATE 325 MG TABLET PO SCH (08:50)
[2018-07-27] MEDS: GEMFIBROZIL 600 MG TABLET PO SCH ×2 (08:50→16:35)
[2018-07-27] MEDS: DOCUSATE SODIUM 100 MG CAPSULE PO SCH (08:50)
[2018-07-27] MEDS: CARVEDILOL 3.125 MG TABLET PO SCH ×2 (08:51→21:45)
[2018-07-27] MEDS: SIMVASTATIN 40 MG TABLET PO SCH (08:51)
[2018-07-27] MEDS: glipiZIDE 5 MG TABLET PO SCH ×2 (08:51→16:35)
[2018-07-27] MEDS: INSULIN REGULAR 100 UNIT/ML SUBCUT SCH ×4 (08:51→21:47)
[2018-07-27] MEDS: CHLORHEXIDINE 0.12% ORAL RINSE 60 ML BOTTLE SWISH/SPIT SCH ×2 (08:54→21:56)
[2018-07-27] MEDS: traZODone 50 MG TABLET PO SCH (21:45)
[2018-07-28] MEDS: ALBUTEROL/IPRATROPIUM 3 ML NEB RESP TX SCH ×4 (00:14→19:06)
[2018-07-28 04:56] LABS: Basophils % 0.4 % (0.0-0.8); Eosinophils # 0.2 10*3/uL (0.0-0.87); Eosinophils % 2.7 % (0.00-10.9); Hematocrit 35.8 VOL% (35.7-47.0); Hemoglobin 11.1 GM/DL (12.0-16.0); Immature Granulocytes % 1.2 %; Immature Granulocytes Absolute 0.11 #; Lymphocytes # 1.3 10*3/uL (1.4-4.0); Lymphocytes % 14.8 % (21.3-54.2); Mean Corpuscular Hemoglobin 28 PG (27-34); Mean Corpuscular Volume 89.7 FL (87-102); Mean Platelet Volume 8.8 FL (9.6-12.0); Monocytes # 1.1 10*3/uL (0.11-0.8); Monocytes % 11.7 % (1.7-12.7); Neutrophils # 6.2 10*3/uL (1.4-7.4); Neutrophils % 69.2 % (38.7-73.9); Platelet Count 378 T/CUMM (130-400); Red Blood Count 3.99 MC/CUMM (3.8-5.5); Red Cell Distribution Width 16.5 % (9.3-17.3)
[2018-07-28 05:18] LABS: Alanine Aminotransferase 35 U/L (13-56); Albumin 2.7 G/DL (3.4-5.0); Alkaline Phosphatase 152 U/L (45-117); Aspartate Amino Transferase 27 U/L (0-37); Bilirubin,Indirect 0.2 MG/DL (0.0-1.0); Blood Urea Nitrogen 29 MG/DL (7-18); Glucose 104 MG/DL (74-106); Osmolality,Calculated 282.5 MOS/KG (273-304); Sodium 139 MMOL/L (136-145); Total Protein 6.8 G/DL (6.4-8.3)
[2018-07-28 05:25] LABS: Troponin I 0.073 NG/ML (0.00-0.045)
[2018-07-28] MEDS: oxyCODONE/ACETAMINOPHEN 5-325 MG TABLET PO PRN ×2 (06:25→22:28)
[2018-07-28] MEDS: FERROUS SULFATE 325 MG TABLET PO SCH (08:57)
[2018-07-28] MEDS: INSULIN REGULAR 100 UNIT/ML SUBCUT SCH ×4 (08:57→22:30)
[2018-07-28] MEDS: PANTOPRAZOLE 40 MG TABLET PO SCH (08:57)
[2018-07-28] MEDS: glipiZIDE 5 MG TABLET PO SCH ×2 (08:57→15:37)
[2018-07-28] MEDS: SIMVASTATIN 40 MG TABLET PO SCH (08:57)
[2018-07-28] MEDS: CARVEDILOL 3.125 MG TABLET PO SCH ×2 (08:57→22:28)
[2018-07-28] MEDS: ASPIRIN EC 325 MG TABLET PO SCH (08:57)
[2018-07-28] MEDS: DOCUSATE SODIUM 100 MG CAPSULE PO SCH (08:57)
[2018-07-28] MEDS: GEMFIBROZIL 600 MG TABLET PO SCH ×2 (08:58→15:37)
[2018-07-28] MEDS: CHLORHEXIDINE 0.12% ORAL RINSE 60 ML BOTTLE SWISH/SPIT SCH ×2 (08:58→22:31)
[2018-07-28] MEDS: FUROSEMIDE 40 MG/4 ML VIAL IV SCH (10:25)
[2018-07-28 17:16] LABS: von Willebrand Factor Activity 136 % (55 - 200)
[2018-07-28] MEDS: traZODone 50 MG TABLET PO SCH (22:28)
[2018-07-28] MEDS: POLYETHYLENE GLYCOL POWDER 17 GM PACK PO PRN (23:30)
[2018-07-29] MEDS: ALBUTEROL/IPRATROPIUM 3 ML NEB RESP TX SCH ×4 (00:34→19:54)
[2018-07-29 04:37] LABS: Basophils # 0.1 10*3/uL (0.0-0.2); Basophils % 0.4 % (0.0-0.8); Eosinophils # 0.3 10*3/uL (0.0-0.87); Eosinophils % 2.7 % (0.00-10.9); Hematocrit 29.6 VOL% (35.7-47.0); Hemoglobin 9.2 GM/DL (12.0-16.0); Immature Granulocytes % 1.2 %; Immature Granulocytes Absolute 0.15 #; Lymphocytes # 2.1 10*3/uL (1.4-4.0); Lymphocytes % 16.3 % (21.3-54.2); Mean Corpuscular HGB Conc 31.1 GM/DL (32-36); Mean Corpuscular Hemoglobin 28 PG (27-34); Mean Corpuscular Volume 89.7 FL (87-102); Mean Platelet Volume 9.8 FL (9.6-12.0); Monocytes # 1.6 10*3/uL (0.11-0.8); Monocytes % 12.7 % (1.7-12.7); Neutrophils # 8.5 10*3/uL (1.4-7.4); Neutrophils % 66.7 % (38.7-73.9); Platelet Count 553 T/CUMM (130-400); Red Cell Distribution Width 16.5 % (9.3-17.3); White Blood Count 12.7 T/CUMM (4-12)
[2018-07-29 05:09] LABS: Alanine Aminotransferase 31 U/L (13-56); Albumin 2.9 G/DL (3.4-5.0); Alkaline Phosphatase 148 U/L (45-117); Aspartate Amino Transferase 21 U/L (0-37); Bilirubin,Indirect 1.2 MG/DL (0.0-1.0); Blood Urea Nitrogen 32 MG/DL (7-18); Calcium 9.2 MG/DL (8.5-10.1); Glucose 114 MG/DL (74-106); Osmolality,Calculated 282.7 MOS/KG (273-304); Potassium 3.8 MMOL/L (3.5-5.1); Sodium 138 MMOL/L (136-145); Total Protein 7.3 G/DL (6.4-8.3); Troponin I 0.035 NG/ML (0.00-0.045)
[2018-07-29] MEDS: INSULIN REGULAR 100 UNIT/ML SUBCUT SCH ×4 (07:23→22:16)
[2018-07-29] MEDS: FERROUS SULFATE 325 MG TABLET PO SCH (09:32)
[2018-07-29] MEDS: DOCUSATE SODIUM 100 MG CAPSULE PO SCH (09:32)
[2018-07-29] MEDS: SIMVASTATIN 40 MG TABLET PO SCH (09:32)
[2018-07-29] MEDS: GEMFIBROZIL 600 MG TABLET PO SCH ×2 (09:32→16:37)
[2018-07-29] MEDS: PANTOPRAZOLE 40 MG TABLET PO SCH (09:32)
[2018-07-29] MEDS: ASPIRIN EC 325 MG TABLET PO SCH (09:32)
[2018-07-29] MEDS: CARVEDILOL 3.125 MG TABLET PO SCH ×2 (09:32→22:02)
[2018-07-29] MEDS: FUROSEMIDE 40 MG/4 ML VIAL IV SCH (09:33)
[2018-07-29] MEDS: CHLORHEXIDINE 0.12% ORAL RINSE 60 ML BOTTLE SWISH/SPIT SCH ×2 (09:33→22:14)
[2018-07-29] MEDS: glipiZIDE 5 MG TABLET PO SCH ×2 (09:33→16:36)
[2018-07-29] MEDS: oxyCODONE/ACETAMINOPHEN 5-325 MG TABLET PO PRN ×2 (18:28→23:52)
[2018-07-29] MEDS: traZODone 50 MG TABLET PO SCH (22:02)
[2018-07-30] MEDS: ALBUTEROL/IPRATROPIUM 3 ML NEB RESP TX SCH ×4 (01:38→19:26)
[2018-07-30 04:28] LABS: Basophils # 0.1 10*3/uL (0.0-0.2); Basophils % 0.4 % (0.0-0.8); Eosinophils # 0.3 10*3/uL (0.0-0.87); Eosinophils % 2.3 % (0.00-10.9); Hematocrit 26.5 VOL% (35.7-47.0); Hemoglobin 8.3 GM/DL (12.0-16.0); Immature Granulocytes % 1.3 %; Immature Granulocytes Absolute 0.15 #; Lymphocytes % 16.4 % (21.3-54.2); Mean Corpuscular HGB Conc 31.3 GM/DL (32-36); Mean Corpuscular Hemoglobin 28 PG (27-34); Mean Corpuscular Volume 88.3 FL (87-102); Mean Platelet Volume 8.9 FL (9.6-12.0); Monocytes # 1.8 10*3/uL (0.11-0.8); Monocytes % 14.9 % (1.7-12.7); Neutrophils # 7.7 10*3/uL (1.4-7.4); Neutrophils % 64.7 % (38.7-73.9); Platelet Count 507 T/CUMM (130-400); Red Cell Distribution Width 16.5 % (9.3-17.3); White Blood Count 11.9 T/CUMM (4-12)
[2018-07-30 05:07] LABS: Calcium 8.9 MG/DL (8.5-10.1); Osmolality,Calculated 284.4 MOS/KG (273-304); Potassium 3.5 MMOL/L (3.5-5.1)
[2018-07-30] MEDS: DOCUSATE SODIUM 100 MG CAPSULE PO SCH (09:34)
[2018-07-30] MEDS: CARVEDILOL 3.125 MG TABLET PO SCH (09:34)
[2018-07-30] MEDS: GEMFIBROZIL 600 MG TABLET PO SCH ×2 (09:34→16:24)
[2018-07-30] MEDS: FERROUS SULFATE 325 MG TABLET PO SCH (09:34)
[2018-07-30] MEDS: glipiZIDE 5 MG TABLET PO SCH ×2 (09:34→16:23)
[2018-07-30] MEDS: ASPIRIN EC 325 MG TABLET PO SCH (09:34)
[2018-07-30] MEDS: FUROSEMIDE 40 MG/4 ML VIAL IV SCH (09:35)
[2018-07-30] MEDS: CHLORHEXIDINE 0.12% ORAL RINSE 60 ML BOTTLE SWISH/SPIT SCH ×2 (09:35→23:03)
[2018-07-30] MEDS: PANTOPRAZOLE 40 MG TABLET PO SCH (09:35)
[2018-07-30] MEDS: INSULIN REGULAR 100 UNIT/ML SUBCUT SCH ×4 (09:35→21:34)
[2018-07-30] MEDS: SIMVASTATIN 40 MG TABLET PO SCH (09:35)
[2018-07-30] MEDS: oxyCODONE/ACETAMINOPHEN 5-325 MG TABLET PO PRN ×2 (16:12→21:35)
[2018-07-30] MEDS: traZODone 50 MG TABLET PO SCH (21:35)
[2018-07-30] MEDS: CARVEDILOL 6.25 MG TABLET PO SCH (21:38)
[2018-07-30] MEDS: LACTULOSE 20 GM/30 ML UDCUP PO PRN (21:38)
[2018-07-31] MEDS: ALBUTEROL/IPRATROPIUM 3 ML NEB RESP TX SCH ×4 (00:24→20:14)
[2018-07-31] MEDS: oxyCODONE/ACETAMINOPHEN 5-325 MG TABLET PO PRN ×3 (01:19→21:06)
[2018-07-31 04:25] LABS: Basophils # 0.1 10*3/uL (0.0-0.2); Basophils % 0.4 % (0.0-0.8); Eosinophils # 0.3 10*3/uL (0.0-0.87); Eosinophils % 2.3 % (0.00-10.9); Hematocrit 27.4 VOL% (35.7-47.0); Hemoglobin 8.6 GM/DL (12.0-16.0); Immature Granulocytes % 1.6 %; Lymphocytes % 15.9 % (21.3-54.2); Mean Corpuscular HGB Conc 31.4 GM/DL (32-36); Mean Corpuscular Hemoglobin 28 PG (27-34); Mean Corpuscular Volume 88.4 FL (87-102); Mean Platelet Volume 9.5 FL (9.6-12.0); Monocytes # 1.8 10*3/uL (0.11-0.8); Monocytes % 13.8 % (1.7-12.7); Neutrophils # 8.4 10*3/uL (1.4-7.4); Platelet Count 533 T/CUMM (130-400); Red Cell Distribution Width 16.6 % (9.3-17.3); White Blood Count 12.8 T/CUMM (4-12)
[2018-07-31 04:46] LABS: Calcium 9.1 MG/DL (8.5-10.1); Osmolality,Calculated 285.4 MOS/KG (273-304); Potassium 3.6 MMOL/L (3.5-5.1)
[2018-07-31] MEDS: GEMFIBROZIL 600 MG TABLET PO SCH ×2 (09:34→17:21)
[2018-07-31] MEDS: glipiZIDE 5 MG TABLET PO SCH ×2 (09:34→17:21)
[2018-07-31] MEDS: DOCUSATE SODIUM 100 MG CAPSULE PO SCH (09:34)
[2018-07-31] MEDS: PANTOPRAZOLE 40 MG TABLET PO SCH (09:34)
[2018-07-31] MEDS: SIMVASTATIN 40 MG TABLET PO SCH (09:35)
[2018-07-31] MEDS: ASPIRIN EC 325 MG TABLET PO SCH (09:35)
[2018-07-31] MEDS: CARVEDILOL 6.25 MG TABLET PO SCH ×2 (09:36→21:05)
[2018-07-31] MEDS: FERROUS SULFATE 325 MG TABLET PO SCH ×4 (09:37→21:05)
[2018-07-31] MEDS: FUROSEMIDE 40 MG/4 ML VIAL IV SCH ×3 (09:40→17:28)
[2018-07-31] MEDS: INSULIN REGULAR 100 UNIT/ML SUBCUT SCH ×4 (09:44→21:12)
[2018-07-31] MEDS: CHLORHEXIDINE 0.12% ORAL RINSE 60 ML BOTTLE SWISH/SPIT SCH ×2 (09:45→21:24)
[2018-07-31] MEDS: traZODone 50 MG TABLET PO SCH (21:05)
[2018-07-31] MEDS: POTASSIUM CHLORIDE 20 MEQ TABLET PO SCH (21:05)
[2018-07-31] MEDS: POLYETHYLENE GLYCOL POWDER 17 GM PACK PO PRN (21:06)
[2018-08-01] MEDS: ALBUTEROL/IPRATROPIUM 3 ML NEB RESP TX SCH ×4 (00:07→19:34)
[2018-08-01 04:56] LABS: Basophils # 0.1 10*3/uL (0.0-0.2); Basophils % 0.4 % (0.0-0.8); Eosinophils # 0.3 10*3/uL (0.0-0.87); Eosinophils % 2.2 % (0.00-10.9); Hemoglobin 8.3 GM/DL (12.0-16.0); Immature Granulocytes % 1.6 %; Immature Granulocytes Absolute 0.21 #; Lymphocytes % 15.3 % (21.3-54.2); Mean Corpuscular HGB Conc 31.9 GM/DL (32-36); Mean Corpuscular Hemoglobin 28 PG (27-34); Mean Corpuscular Volume 88.4 FL (87-102); Monocytes # 1.5 10*3/uL (0.11-0.8); Monocytes % 11.9 % (1.7-12.7); Neutrophils # 8.8 10*3/uL (1.4-7.4); Neutrophils % 68.6 % (38.7-73.9); Platelet Count 529 T/CUMM (130-400); Red Blood Count 2.94 MC/CUMM (3.8-5.5); Red Cell Distribution Width 16.6 % (9.3-17.3); White Blood Count 12.9 T/CUMM (4-12)
[2018-08-01 05:17] LABS: Osmolality,Calculated 284.4 MOS/KG (273-304); Potassium 3.7 MMOL/L (3.5-5.1)
[2018-08-01] MEDS: oxyCODONE/ACETAMINOPHEN 5-325 MG TABLET PO PRN ×2 (05:30→19:43)
[2018-08-01] MEDS: INSULIN REGULAR 100 UNIT/ML SUBCUT SCH ×4 (07:41→20:14)
[2018-08-01] MEDS: CARVEDILOL 6.25 MG TABLET PO SCH ×3 (09:14→20:12)
[2018-08-01] MEDS: DOCUSATE SODIUM 100 MG CAPSULE PO SCH (09:14)
[2018-08-01] MEDS: POTASSIUM CHLORIDE 20 MEQ TABLET PO SCH ×3 (09:14→20:13)
[2018-08-01] MEDS: GEMFIBROZIL 600 MG TABLET PO SCH ×2 (09:14→17:28)
[2018-08-01] MEDS: FUROSEMIDE 40 MG/4 ML VIAL IV SCH ×2 (09:15→17:27)
[2018-08-01] MEDS: glipiZIDE 5 MG TABLET PO SCH ×2 (09:15→17:28)
[2018-08-01] MEDS: PANTOPRAZOLE 40 MG TABLET PO SCH (09:15)
[2018-08-01] MEDS: SIMVASTATIN 40 MG TABLET PO SCH (09:15)
[2018-08-01] MEDS: FERROUS SULFATE 325 MG TABLET PO SCH ×4 (09:15→20:13)
[2018-08-01] MEDS: ASPIRIN EC 325 MG TABLET PO SCH (09:16)
[2018-08-01] MEDS: CHLORHEXIDINE 0.12% ORAL RINSE 60 ML BOTTLE SWISH/SPIT SCH ×2 (09:16→20:13)
[2018-08-01] MEDS: traZODone 50 MG TABLET PO SCH ×2 (19:42→20:13)
[2018-08-02] MEDS: ALBUTEROL/IPRATROPIUM 3 ML NEB RESP TX SCH ×4 (00:03→19:11)
[2018-08-02] MEDS: oxyCODONE/ACETAMINOPHEN 5-325 MG TABLET PO PRN (03:03)
[2018-08-02] MEDS: INSULIN REGULAR 100 UNIT/ML SUBCUT SCH ×4 (08:17→21:38)
[2018-08-02] MEDS: PANTOPRAZOLE 40 MG TABLET PO SCH (08:52)
[2018-08-02] MEDS: FERROUS SULFATE 325 MG TABLET PO SCH ×3 (08:52→21:38)
[2018-08-02] MEDS: SIMVASTATIN 40 MG TABLET PO SCH (08:52)
[2018-08-02] MEDS: DOCUSATE SODIUM 100 MG CAPSULE PO SCH (08:52)
[2018-08-02] MEDS: glipiZIDE 5 MG TABLET PO SCH ×2 (08:52→15:45)
[2018-08-02] MEDS: ASPIRIN EC 325 MG TABLET PO SCH (08:52)
[2018-08-02] MEDS: POTASSIUM CHLORIDE 20 MEQ TABLET PO SCH ×2 (08:52→21:38)
[2018-08-02] MEDS: GEMFIBROZIL 600 MG TABLET PO SCH ×2 (08:52→15:45)
[2018-08-02] MEDS: CARVEDILOL 6.25 MG TABLET PO SCH ×2 (08:52→21:38)
[2018-08-02] MEDS: FUROSEMIDE 40 MG/4 ML VIAL IV SCH ×2 (08:53→15:47)
[2018-08-02] MEDS: CHLORHEXIDINE 0.12% ORAL RINSE 60 ML BOTTLE SWISH/SPIT SCH ×2 (10:18→21:39)
[2018-08-02 10:19] LABS: Basophils # 0.1 10*3/uL (0.0-0.2); Basophils % 0.4 % (0.0-0.8); Eosinophils # 0.2 10*3/uL (0.0-0.87); Eosinophils % 1.5 % (0.00-10.9); Hematocrit 28.2 VOL% (35.7-47.0); Hemoglobin 8.9 GM/DL (12.0-16.0); Immature Granulocytes % 1.2 %; Immature Granulocytes Absolute 0.17 #; Lymphocytes # 1.8 10*3/uL (1.4-4.0); Mean Corpuscular HGB Conc 31.6 GM/DL (32-36); Mean Corpuscular Hemoglobin 28 PG (27-34); Mean Corpuscular Volume 88.4 FL (87-102); Mean Platelet Volume 9.2 FL (9.6-12.0); Monocytes # 1.2 10*3/uL (0.11-0.8); Monocytes % 8.8 % (1.7-12.7); Neutrophils # 10.4 10*3/uL (1.4-7.4); Neutrophils % 75.1 % (38.7-73.9); Platelet Count 568 T/CUMM (130-400); Red Blood Count 3.19 MC/CUMM (3.8-5.5); Red Cell Distribution Width 16.5 % (9.3-17.3); White Blood Count 13.9 T/CUMM (4-12)
[2018-08-02 10:42] LABS: Calcium 8.9 MG/DL (8.5-10.1); Osmolality,Calculated 284.7 MOS/KG (273-304); Potassium 3.7 MMOL/L (3.5-5.1)
[2018-08-02] MEDS: metOLazone 5 MG TABLET PO SCH (14:19)
[2018-08-02] MEDS: traZODone 50 MG TABLET PO SCH (21:38)
[2018-08-03] MEDS: ALBUTEROL/IPRATROPIUM 3 ML NEB RESP TX SCH ×2 (01:18→07:50)
[2018-08-03 05:30] LABS: Basophils # 0.1 10*3/uL (0.0-0.2); Basophils % 0.3 % (0.0-0.8); Eosinophils # 0.2 10*3/uL (0.0-0.87); Eosinophils % 1.5 % (0.00-10.9); Hematocrit 26.8 VOL% (35.7-47.0); Hemoglobin 8.4 GM/DL (12.0-16.0); Immature Granulocytes Absolute 0.15 #; Lymphocytes # 1.9 10*3/uL (1.4-4.0); Lymphocytes % 12.7 % (21.3-54.2); Mean Corpuscular HGB Conc 31.3 GM/DL (32-36); Mean Corpuscular Hemoglobin 28 PG (27-34); Mean Corpuscular Volume 88.7 FL (87-102); Mean Platelet Volume 8.9 FL (9.6-12.0); Monocytes # 1.6 10*3/uL (0.11-0.8); Monocytes % 10.3 % (1.7-12.7); Neutrophils # 11.2 10*3/uL (1.4-7.4); Neutrophils % 74.2 % (38.7-73.9); Platelet Count 494 T/CUMM (130-400); Red Blood Count 3.02 MC/CUMM (3.8-5.5); Red Cell Distribution Width 16.5 % (9.3-17.3); White Blood Count 15.1 T/CUMM (4-12)
[2018-08-03 05:56] LABS: Osmolality,Calculated 282.5 MOS/KG (273-304); Potassium 3.2 MMOL/L (3.5-5.1)
[2018-08-03] MEDS: POTASSIUM CHLORIDE 20 MEQ TABLET PO SCH (09:21)
[2018-08-03] MEDS: DOCUSATE SODIUM 100 MG CAPSULE PO SCH (09:21)
[2018-08-03] MEDS: glipiZIDE 5 MG TABLET PO SCH (09:21)
[2018-08-03] MEDS: SIMVASTATIN 40 MG TABLET PO SCH (09:21)
[2018-08-03] MEDS: GEMFIBROZIL 600 MG TABLET PO SCH (09:22)
[2018-08-03] MEDS: metOLazone 5 MG TABLET PO SCH (09:22)
[2018-08-03] MEDS: CARVEDILOL 6.25 MG TABLET PO SCH (09:24)
[2018-08-03] MEDS: PANTOPRAZOLE 40 MG TABLET PO SCH (09:24)
[2018-08-03] MEDS: ASPIRIN EC 325 MG TABLET PO SCH (09:25)
[2018-08-03] MEDS: FUROSEMIDE 40 MG/4 ML VIAL IV SCH (09:26)
[2018-08-03] MEDS: FERROUS SULFATE 325 MG TABLET PO SCH (09:27)
[2018-08-03] MEDS: INSULIN REGULAR 100 UNIT/ML SUBCUT SCH ×2 (09:28→12:40)
[2018-08-03] MEDS: CHLORHEXIDINE 0.12% ORAL RINSE 60 ML BOTTLE SWISH/SPIT SCH (09:29)
[2018-08-03 12:37] VITALS: BP 115/62
[2018-08-03] MEDS: POTASSIUM CHLORIDE 20 MEQ TABLET PO PRN (12:56)
== END 2018-08-03 13:19 | disposition swing bed (61) | DRG 216 ==
LOC: N.4E → EDBD → N.TELEN 07-14 14:14 → N.CVR 07-21 12:33 → N.ICU 07-22 14:09 → N.TELES 07-25 12:07
PROVIDERS: ADMIT Family Medicine; ATTEND Family Medicine

== ENCOUNTER 2018-12-26 09:00 | Inpatient (IN) ==
[2018-12-26] MEDS ORDERED: ACETAMINOPHEN 325 MG TABLET PO PRN (11:45)
[2018-12-26] MEDS ORDERED: ONDANSETRON 4 MG/2 ML VIAL IV PRN (11:45)
[2018-12-26] MEDS ORDERED: ALBUTEROL 2.5 MG/3 ML NEB RESP TX PRN (11:49)
[2018-12-26] MEDS ORDERED: DEXTROSE 50% 25 GM/50 ML VIAL IV PRN (11:51)
[2018-12-26] MEDS ORDERED: GLUCAGON 1 MG VIAL IM PRN (11:51)
[2018-12-26] MEDS: ALBUTEROL/IPRATROPIUM 3 ML NEB RESP TX SCH ×2 (12:20→20:03)
[2018-12-26] MEDS ORDERED: SODIUM CHLORIDE 0.9% 1,000 ML IV PRN (12:52)
[2018-12-26] MEDS ORDERED: FUROSEMIDE 20 MG/2 ML VIAL IV ONE (12:52)
[2018-12-26] MEDS: FUROSEMIDE 40 MG/4 ML VIAL IV SCH (14:20)
[2018-12-26] MEDS: INSULIN LISPRO 100 UNIT/ML SUBCUT SCH ×2 (15:39→21:46)
[2018-12-26] MEDS: DOCUSATE SODIUM 100 MG CAPSULE PO SCH (20:41)
[2018-12-26] MEDS: CARVEDILOL 6.25 MG TABLET PO SCH (20:41)
[2018-12-26] MEDS: GEMFIBROZIL 600 MG TABLET PO SCH (20:41)
[2018-12-26 21:50] LABS: Apearance,Urine CLEAR (Clear); Bilirubin,Urine Negative (Negative); Blood, Urine Small mg/dL (Negative); Glucose,Urine (UA) Negative (Negative); Hyaline Casts,Urine 3 /LPF (0-3); Ketones,Urine Negative (Negative); Nitrite,Urine Negative (Negative); Protein,Urine Negative; RBC,Urine 1 /HPF (0-4); Squamous Epithelial Cell,Urine Occasional /HPF (0-10); Urine Color Yellow (Yellow); Urine Specific Gravity 1.006 (1.001-1.035); Urine Urobilinogen < 2.0 EU/DL (0.2-1.0); WBC,Urine 14 /HPF (0-6)
[2018-12-27] MEDS: ALBUTEROL/IPRATROPIUM 3 ML NEB RESP TX SCH ×4 (01:10→19:14)
[2018-12-27 04:51] LABS: Basophils % 0.4 % (0.0-0.8); Eosinophils # 0.2 10*3/uL (0.0-0.87); Eosinophils % 2.5 % (0.00-10.9); Hematocrit 23.1 VOL% (35.7-47.0); Hemoglobin 7.4 GM/DL (12.0-16.0); Immature Granulocytes % 0.6 %; Immature Granulocytes Absolute 0.06 #; Lymphocytes # 1.6 10*3/uL (1.4-4.0); Lymphocytes % 16.8 % (21.3-54.2); Mean Platelet Volume 9.5 FL (9.6-12.0); Monocytes % 10.4 % (1.7-12.7); NRBC # 0.02 10*3/uL; Neutrophils % 69.3 % (38.7-73.9); Platelet Count 245 T/CUMM (130-400); Red Blood Count 2.75 MC/CUMM (3.8-5.5); White Blood Count 9.5 T/CUMM (4-12)
[2018-12-27 05:24] LABS: Alanine Aminotransferase < 9 U/L (13-56); Alkaline Phosphatase 97 U/L (45-117); Aspartate Amino Transferase 19 U/L (0-37); Blood Urea Nitrogen 36 MG/DL (7-18); Calcium 9.3 MG/DL (8.5-10.1); Glucose 98 MG/DL (74-106); Osmolality,Calculated 290.1 MOS/KG (273-304); Total Protein 7.5 G/DL (6.4-8.3)
[2018-12-27] MEDS: INSULIN LISPRO 100 UNIT/ML SUBCUT SCH ×4 (07:30→20:36)
[2018-12-27] MEDS: POTASSIUM CHLORIDE 10 MEQ TABLET PO SCH (08:10)
[2018-12-27] MEDS ORDERED: SKIN HEALING OINT (AQUAPHOR) 50 GM TUBE TOP PRN (08:33)
[2018-12-27 09:23] LABS: % Iron Saturation 23.3 % (18-50); Ferritin 1795.8 ng/ml (8-252)
[2018-12-27] MEDS: FUROSEMIDE 40 MG/4 ML VIAL IV SCH (09:31)
[2018-12-27] MEDS: POTASSIUM CHLORIDE RIDER 10 MEQ in PREMIX 1 EACH IV PRN ×5 (09:31→16:21)
[2018-12-27] MEDS: CARVEDILOL 6.25 MG TABLET PO SCH ×2 (09:32→20:37)
[2018-12-27] MEDS: PANTOPRAZOLE 40 MG TABLET PO SCH (09:32)
[2018-12-27] MEDS: DOCUSATE SODIUM 100 MG CAPSULE PO SCH ×2 (09:32→20:37)
[2018-12-27] MEDS: metOLazone 5 MG TABLET PO SCH (09:32)
[2018-12-27] MEDS: GEMFIBROZIL 600 MG TABLET PO SCH ×2 (09:32→20:37)
[2018-12-27] MEDS ORDERED: LIDOCAINE 1%/EPI INJ 20 ML VIAL ONE (13:00)
[2018-12-27 13:55] LABS: Hematocrit 25.3 VOL% (35.7-47.0); Hemoglobin 8.3 GM/DL (12.0-16.0)
[2018-12-28] MEDS: ALBUTEROL/IPRATROPIUM 3 ML NEB RESP TX SCH ×4 (00:21→19:40)
[2018-12-28] MEDS: POTASSIUM CHLORIDE RIDER 10 MEQ in PREMIX 1 EACH IV PRN ×2 (02:18→04:43)
[2018-12-28 06:43] LABS: Basophils # 0.1 10*3/uL (0.0-0.2); Basophils % 0.6 % (0.0-0.8); Eosinophils # 0.3 10*3/uL (0.0-0.87); Eosinophils % 2.9 % (0.00-10.9); Hematocrit 24.2 VOL% (35.7-47.0); Hemoglobin 7.9 GM/DL (12.0-16.0); Immature Granulocytes % 0.8 %; Immature Granulocytes Absolute 0.08 #; Lymphocytes % 18.6 % (21.3-54.2); Mean Corpuscular HGB Conc 32.6 GM/DL (32-36); Mean Platelet Volume 9.4 FL (9.6-12.0); Monocytes % 11.7 % (1.7-12.7); NRBC # 0.02 10*3/uL; Neutrophils % 65.4 % (38.7-73.9); Platelet Count 242 T/CUMM (130-400); Red Blood Count 2.88 MC/CUMM (3.8-5.5); Red Cell Distribution Width 17.2 % (9.3-17.3); White Blood Count 10.6 T/CUMM (4-12)
[2018-12-28 07:18] LABS: Calcium 9.5 MG/DL (8.5-10.1); Osmolality,Calculated 285.4 MOS/KG (273-304)
[2018-12-28] MEDS: INSULIN LISPRO 100 UNIT/ML SUBCUT SCH ×4 (08:22→21:26)
[2018-12-28 08:36] LABS: Carcinoembryonic Antigen < 0.5 NG/ML (0.0-5.0)
[2018-12-28 08:50] LABS: Hemoglobin A1 (Alkaline) 73.6 % (96.5-98.5); Hemoglobin A2 (Alkaline) 2.5 % (1.5-3.5); Hemoglobin S (Alkaline) 23.9 %
[2018-12-28] MEDS: FUROSEMIDE 40 MG/4 ML VIAL IV SCH (09:17)
[2018-12-28] MEDS: POTASSIUM CHLORIDE 10 MEQ TABLET PO SCH (09:18)
[2018-12-28] MEDS: CARVEDILOL 6.25 MG TABLET PO SCH ×2 (09:18→21:27)
[2018-12-28] MEDS: metOLazone 5 MG TABLET PO SCH (09:18)
[2018-12-28] MEDS: PANTOPRAZOLE 40 MG TABLET PO SCH (09:18)
[2018-12-28] MEDS: GEMFIBROZIL 600 MG TABLET PO SCH ×2 (09:18→21:27)
[2018-12-28] MEDS: DOCUSATE SODIUM 100 MG CAPSULE PO SCH ×2 (09:18→21:27)
[2018-12-28] MEDS ORDERED: SODIUM CHLORIDE 0.9% 1,000 ML IV PRN (10:10)
[2018-12-28] MEDS ORDERED: LIDOCAINE 1%/EPI INJ 20 ML VIAL ONE (13:32)
[2018-12-28 16:14] LABS: Hemoglobin 9.1 GM/DL (12.0-16.0)
[2018-12-29] MEDS: ALBUTEROL/IPRATROPIUM 3 ML NEB RESP TX SCH ×2 (02:16→07:38)
[2018-12-29 05:45] LABS: Basophils % 0.4 % (0.0-0.8); Eosinophils # 0.3 10*3/uL (0.0-0.87); Eosinophils % 3.1 % (0.00-10.9); Hematocrit 25.9 VOL% (35.7-47.0); Hemoglobin 8.2 GM/DL (12.0-16.0); Immature Granulocytes % 0.8 %; Immature Granulocytes Absolute 0.09 #; Lymphocytes # 1.9 10*3/uL (1.4-4.0); Lymphocytes % 17.6 % (21.3-54.2); Mean Corpuscular HGB Conc 31.7 GM/DL (32-36); Mean Platelet Volume 9.7 FL (9.6-12.0); Monocytes % 11.5 % (1.7-12.7); NRBC # 0.02 10*3/uL; Neutrophils % 66.6 % (38.7-73.9); Platelet Count 239 T/CUMM (130-400); Red Blood Count 3.01 MC/CUMM (3.8-5.5); Red Cell Distribution Width 17.2 % (9.3-17.3)
[2018-12-29] MEDS: INSULIN LISPRO 100 UNIT/ML SUBCUT SCH (07:47)
[2018-12-29 08:23] VITALS: BP 112/56
[2018-12-29] MEDS: PANTOPRAZOLE 40 MG TABLET PO SCH (09:33)
[2018-12-29] MEDS: FUROSEMIDE 40 MG/4 ML VIAL IV SCH (09:33)
[2018-12-29] MEDS: DOCUSATE SODIUM 100 MG CAPSULE PO SCH (09:33)
[2018-12-29] MEDS: GEMFIBROZIL 600 MG TABLET PO SCH (09:33)
[2018-12-29] MEDS: metOLazone 5 MG TABLET PO SCH (09:33)
[2018-12-29] MEDS: CARVEDILOL 6.25 MG TABLET PO SCH (09:33)
[2018-12-29] MEDS: POTASSIUM CHLORIDE 10 MEQ TABLET PO SCH (09:33)
== END 2018-12-29 11:30 | disposition home health service (06) | DRG 598 ==
LOC: N.5E
PROVIDERS: ADMIT Family Medicine; ATTEND Family Medicine

== ENCOUNTER 2019-01-10 14:49 | Inpatient (IN) ==
[2019-01-10 15:32] LABS: Basophils % 0.3 % (0.0-0.8); Eosinophils # 0.1 10*3/uL (0.0-0.87); Eosinophils % 0.9 % (0.00-10.9); Hematocrit 21.6 VOL% (35.7-47.0); Hemoglobin 6.9 GM/DL (12.0-16.0); Immature Granulocytes % 1.3 %; Lymphocytes # 1.8 10*3/uL (1.4-4.0); Lymphocytes % 12.3 % (21.3-54.2); Mean Corpuscular HGB Conc 31.9 GM/DL (32-36); Mean Corpuscular Volume 85.4 FL (87-102); Monocytes % 9.8 % (1.7-12.7); NRBC # 0.04 10*3/uL; Neutrophils % 75.4 % (38.7-73.9); Platelet Count 142 T/CUMM (130-400); Red Blood Count 2.53 MC/CUMM (3.8-5.5); Red Cell Distribution Width 17.7 % (9.3-17.3); White Blood Count 14.9 T/CUMM (4-12)
[2019-01-10 16:06] LABS: Bilirubin,Total 0.8 MG/DL (0.2-1.0); Calcium 9.3 MG/DL (8.5-10.1); Osmolality,Calculated 293.4 MOS/KG (273-304); Total Protein 7.4 G/DL (6.4-8.3)
[2019-01-10 16:25] LABS: Apearance,Urine CLEAR (Clear); Bilirubin,Urine Negative (Negative); Blood, Urine Negative (Negative); Glucose,Urine (UA) Negative (Negative); Hyaline Casts,Urine 13 /LPF (0-3); Ketones,Urine Negative (Negative); Mucus,Urine Occasional /LPF (Occasional); Nitrite,Urine Negative (Negative); Protein,Urine Negative; RBC,Urine <1 /HPF (0-4); Squamous Epithelial Cell,Urine Occasional /HPF (0-10); Urine Color Yellow (Yellow); Urine Urobilinogen < 2.0 EU/DL (0.2-1.0); WBC,Urine 1 /HPF (0-6)
[2019-01-10] MEDS ORDERED: SODIUM CHLORIDE 0.9% 1,000 ML IV PRN (17:28)
[2019-01-10] MEDS ORDERED: PIPERACILLIN/TAZOBACTAM 3,375 MG in SODIUM CHLORIDE 0.9% 100 ML IV STA (17:29)
[2019-01-10] MEDS ORDERED: SODIUM CHLORIDE 0.9% 1,000 ML IV STA (17:29)
[2019-01-10] MEDS: SODIUM CHLORIDE 0.9% 1,000 ML IV SCH (19:42)
[2019-01-10] MEDS ORDERED: ALBUTEROL 2.5 MG/3 ML NEB RESP TX PRN (20:09)
[2019-01-10] MEDS: SIMVASTATIN 40 MG TABLET PO SCH (21:46)
[2019-01-10] MEDS: DOCUSATE SODIUM 100 MG CAPSULE PO SCH (21:46)
[2019-01-10] MEDS: ACETAMINOPHEN 325 MG TABLET PO PRN (21:46)
[2019-01-10] MEDS: CARVEDILOL 6.25 MG TABLET PO SCH (21:46)
[2019-01-10] MEDS: GEMFIBROZIL 600 MG TABLET PO SCH (21:49)
[2019-01-11] MEDS: ONDANSETRON 4 MG/2 ML VIAL IV PRN ×2 (01:12→15:28)
[2019-01-11] MEDS: PIPERACILLIN/TAZOBACTAM 3,375 MG in SODIUM CHLORIDE 0.9% 100 ML IV SCH ×3 (01:18→18:11)
[2019-01-11] MEDS: ALBUTEROL/IPRATROPIUM 3 ML NEB RESP TX SCH ×4 (01:28→20:21)
[2019-01-11 05:53] LABS: Basophils % 0.2 % (0.0-0.8); Eosinophils # 0.2 10*3/uL (0.0-0.87); Eosinophils % 1.6 % (0.00-10.9); Hematocrit 24.3 VOL% (35.7-47.0); Hemoglobin 7.5 GM/DL (12.0-16.0); Immature Granulocytes Absolute 0.25 #; Lymphocytes # 1.5 10*3/uL (1.4-4.0); Lymphocytes % 11.8 % (21.3-54.2); Mean Corpuscular HGB Conc 30.9 GM/DL (32-36); Mean Corpuscular Volume 87.7 FL (87-102); Mean Platelet Volume 9.8 FL (9.6-12.0); Monocytes % 10.6 % (1.7-12.7); NRBC # 0.03 10*3/uL; Neutrophils % 73.8 % (38.7-73.9); Platelet Count 104 T/CUMM (130-400); Red Blood Count 2.77 MC/CUMM (3.8-5.5); White Blood Count 12.6 T/CUMM (4-12)
[2019-01-11 06:30] LABS: Albumin 2.4 G/DL (3.4-5.0); Bilirubin,Total 1.6 MG/DL (0.2-1.0); Calcium 8.8 MG/DL (8.5-10.1); Osmolality,Calculated 289.3 MOS/KG (273-304); Total Protein 6.8 G/DL (6.4-8.3)
[2019-01-11] MEDS: SODIUM CHLORIDE 0.9% 1,000 ML IV SCH ×2 (06:44→16:02)
[2019-01-11] MEDS: CARVEDILOL 6.25 MG TABLET PO SCH ×2 (10:13→20:33)
[2019-01-11] MEDS: metOLazone 5 MG TABLET PO SCH (10:13)
[2019-01-11] MEDS: POTASSIUM CHLORIDE 10 MEQ TABLET PO SCH (10:13)
[2019-01-11] MEDS: GEMFIBROZIL 600 MG TABLET PO SCH ×2 (10:13→20:33)
[2019-01-11] MEDS: PANTOPRAZOLE 40 MG TABLET PO SCH (10:14)
[2019-01-11] MEDS: DOCUSATE SODIUM 100 MG CAPSULE PO SCH ×2 (10:14→20:33)
[2019-01-11] MEDS: LETROZOLE 2.5 MG TABLET PO SCH (10:14)
[2019-01-11] MEDS: FUROSEMIDE 40 MG TABLET PO SCH (10:14)
[2019-01-11] MEDS: ACETAMINOPHEN 325 MG TABLET PO PRN ×3 (10:22→22:48)
[2019-01-11] MEDS ORDERED: DEXTROSE 50% 25 GM/50 ML VIAL IV PRN (12:52)
[2019-01-11] MEDS ORDERED: GLUCAGON 1 MG VIAL IM PRN (12:52)
[2019-01-11] MEDS: INSULIN LISPRO 100 UNIT/ML SUBCUT SCH ×2 (16:06→20:43)
[2019-01-11] MEDS: POTASSIUM CHLORIDE 20 MEQ TABLET PO PRN ×2 (16:31→18:01)
[2019-01-11] MEDS: SIMVASTATIN 40 MG TABLET PO SCH (20:33)
[2019-01-12] MEDS: ALBUTEROL/IPRATROPIUM 3 ML NEB RESP TX SCH ×4 (00:49→19:53)
[2019-01-12] MEDS: PIPERACILLIN/TAZOBACTAM 3,375 MG in SODIUM CHLORIDE 0.9% 100 ML IV SCH ×3 (02:04→18:40)
[2019-01-12 05:46] LABS: Basophils % 0.3 % (0.0-0.8); Eosinophils % 0.1 % (0.00-10.9); Hematocrit 22.9 VOL% (35.7-47.0); Hemoglobin 7.1 GM/DL (12.0-16.0); Immature Granulocytes Absolute 0.31 #; Lymphocytes # 1.3 10*3/uL (1.4-4.0); Lymphocytes % 8.4 % (21.3-54.2); Mean Corpuscular Volume 87.4 FL (87-102); Mean Platelet Volume 10.4 FL (9.6-12.0); Monocytes % 9.8 % (1.7-12.7); NRBC # 0.03 10*3/uL; Neutrophils % 79.4 % (38.7-73.9); Platelet Count 120 T/CUMM (130-400); Red Blood Count 2.62 MC/CUMM (3.8-5.5); Red Cell Distribution Width 17.3 % (9.3-17.3); White Blood Count 15.9 T/CUMM (4-12)
[2019-01-12 06:01] LABS: Osmolality,Calculated 290.1 MOS/KG (273-304)
[2019-01-12] MEDS ORDERED: PROMETHAZINE INJ 12.5 MG in SODIUM CHLORIDE 0.9% 50 ML IV PRN (09:23)
[2019-01-12] MEDS: INSULIN LISPRO 100 UNIT/ML SUBCUT SCH ×4 (09:31→21:14)
[2019-01-12] MEDS: ONDANSETRON 4 MG/2 ML VIAL IV PRN ×2 (09:32→18:40)
[2019-01-12] MEDS: metOLazone 5 MG TABLET PO SCH (09:33)
[2019-01-12] MEDS: LETROZOLE 2.5 MG TABLET PO SCH (09:33)
[2019-01-12] MEDS: GEMFIBROZIL 600 MG TABLET PO SCH ×2 (09:33→21:14)
[2019-01-12] MEDS: POTASSIUM CHLORIDE 20 MEQ TABLET PO PRN ×4 (09:33→18:49)
[2019-01-12] MEDS: CARVEDILOL 6.25 MG TABLET PO SCH ×2 (09:33→21:14)
[2019-01-12] MEDS: FUROSEMIDE 40 MG TABLET PO SCH (09:33)
[2019-01-12] MEDS: PANTOPRAZOLE 40 MG TABLET PO SCH (09:33)
[2019-01-12] MEDS: POTASSIUM CHLORIDE 10 MEQ TABLET PO SCH (09:33)
[2019-01-12] MEDS: DOCUSATE SODIUM 100 MG CAPSULE PO SCH ×2 (09:33→21:14)
[2019-01-12] MEDS: ACETAMINOPHEN 325 MG TABLET PO PRN (18:49)
[2019-01-12] MEDS: SIMVASTATIN 40 MG TABLET PO SCH (21:14)
[2019-01-13] MEDS: ALBUTEROL/IPRATROPIUM 3 ML NEB RESP TX SCH ×4 (00:57→20:10)
[2019-01-13 01:08] LABS: Basophils # 0.1 10*3/uL (0.0-0.2); Basophils % 0.3 % (0.0-0.8); Eosinophils % 0.1 % (0.00-10.9); Hematocrit 25.2 VOL% (35.7-47.0); Hemoglobin 7.8 GM/DL (12.0-16.0); Immature Granulocytes % 2.3 %; Immature Granulocytes Absolute 0.38 #; Lymphocytes # 1.6 10*3/uL (1.4-4.0); Lymphocytes % 9.5 % (21.3-54.2); Mean Corpuscular Volume 88.1 FL (87-102); Mean Platelet Volume 10.1 FL (9.6-12.0); Monocytes % 11.8 % (1.7-12.7); NRBC # 0.06 10*3/uL; Platelet Count 137 T/CUMM (130-400); Red Blood Count 2.86 MC/CUMM (3.8-5.5); White Blood Count 16.6 T/CUMM (4-12)
[2019-01-13 01:22] LABS: Calcium 9.4 MG/DL (8.5-10.1); Osmolality,Calculated 288.3 MOS/KG (273-304)
[2019-01-13] MEDS: PIPERACILLIN/TAZOBACTAM 3,375 MG in SODIUM CHLORIDE 0.9% 100 ML IV SCH ×3 (03:37→17:19)
[2019-01-13] MEDS: POTASSIUM CHLORIDE 20 MEQ TABLET PO PRN ×3 (08:04→17:18)
[2019-01-13] MEDS: GEMFIBROZIL 600 MG TABLET PO SCH ×2 (08:04→21:18)
[2019-01-13] MEDS: POTASSIUM CHLORIDE 10 MEQ TABLET PO SCH (08:04)
[2019-01-13] MEDS: metOLazone 5 MG TABLET PO SCH (08:04)
[2019-01-13] MEDS: CARVEDILOL 6.25 MG TABLET PO SCH ×2 (08:04→21:19)
[2019-01-13] MEDS: PANTOPRAZOLE 40 MG TABLET PO SCH (08:04)
[2019-01-13] MEDS: FUROSEMIDE 40 MG TABLET PO SCH (08:04)
[2019-01-13] MEDS: ACETAMINOPHEN 325 MG TABLET PO PRN (08:04)
[2019-01-13] MEDS: LETROZOLE 2.5 MG TABLET PO SCH (08:09)
[2019-01-13] MEDS: DOCUSATE SODIUM 100 MG CAPSULE PO SCH ×2 (08:09→21:19)
[2019-01-13] MEDS: INSULIN LISPRO 100 UNIT/ML SUBCUT SCH ×4 (08:09→21:19)
[2019-01-13] MEDS: traMADol 50 MG TABLET PO PRN ×3 (10:55→23:04)
[2019-01-13] MEDS ORDERED: MAGNESIUM HYDROXIDE SUSP 30 ML UDCUP PO PRN (14:06)
[2019-01-13] MEDS: SIMVASTATIN 40 MG TABLET PO SCH (21:18)
[2019-01-14] MEDS: ALBUTEROL/IPRATROPIUM 3 ML NEB RESP TX SCH ×4 (00:42→20:12)
[2019-01-14] MEDS: PIPERACILLIN/TAZOBACTAM 3,375 MG in SODIUM CHLORIDE 0.9% 100 ML IV SCH ×3 (02:21→17:37)
[2019-01-14 04:00] LABS: Basophils % 0.3 % (0.0-0.8); Eosinophils # 0.2 10*3/uL (0.0-0.87); Eosinophils % 1.3 % (0.00-10.9); Hematocrit 26.6 VOL% (35.7-47.0); Hemoglobin 8.4 GM/DL (12.0-16.0); Immature Granulocytes % 2.8 %; Immature Granulocytes Absolute 0.44 #; Lymphocytes # 1.4 10*3/uL (1.4-4.0); Lymphocytes % 8.7 % (21.3-54.2); Mean Corpuscular HGB Conc 31.6 GM/DL (32-36); Mean Platelet Volume 10.5 FL (9.6-12.0); Monocytes % 10.9 % (1.7-12.7); NRBC # 0.13 10*3/uL; Platelet Count 178 T/CUMM (130-400); Red Blood Count 2.99 MC/CUMM (3.8-5.5); Red Cell Distribution Width 17.1 % (9.3-17.3); White Blood Count 15.9 T/CUMM (4-12)
[2019-01-14] MEDS: INSULIN LISPRO 100 UNIT/ML SUBCUT SCH ×4 (08:31→21:47)
[2019-01-14] MEDS: PANTOPRAZOLE 40 MG TABLET PO SCH (08:45)
[2019-01-14] MEDS: DOCUSATE SODIUM 100 MG CAPSULE PO SCH ×2 (08:45→21:46)
[2019-01-14] MEDS: LETROZOLE 2.5 MG TABLET PO SCH (08:45)
[2019-01-14] MEDS: POTASSIUM CHLORIDE 10 MEQ TABLET PO SCH (08:46)
[2019-01-14] MEDS: FUROSEMIDE 40 MG TABLET PO SCH (08:46)
[2019-01-14] MEDS: GEMFIBROZIL 600 MG TABLET PO SCH ×2 (08:46→21:47)
[2019-01-14] MEDS: metOLazone 5 MG TABLET PO SCH (08:46)
[2019-01-14] MEDS: CARVEDILOL 6.25 MG TABLET PO SCH ×2 (08:47→21:46)
[2019-01-14] MEDS: POTASSIUM CHLORIDE 20 MEQ TABLET PO PRN ×2 (15:02→17:37)
[2019-01-14] MEDS ORDERED: SIMETHICONE CHEW 80 MG TABLET PO PRN (15:40)
[2019-01-14] MEDS ORDERED: ALUMINUM/MAGNES/SIMETH MAX STR 30 ML UDCUP PO PRN (15:43)
[2019-01-14] MEDS: traMADol 50 MG TABLET PO PRN (21:46)
[2019-01-14] MEDS: SIMVASTATIN 40 MG TABLET PO SCH (21:48)
[2019-01-15] MEDS: ALBUTEROL/IPRATROPIUM 3 ML NEB RESP TX SCH ×4 (00:37→18:50)
[2019-01-15] MEDS: PIPERACILLIN/TAZOBACTAM 3,375 MG in SODIUM CHLORIDE 0.9% 100 ML IV SCH ×3 (02:12→20:31)
[2019-01-15] MEDS: traMADol 50 MG TABLET PO PRN ×3 (05:25→22:30)
[2019-01-15 05:48] LABS: Basophils % 0.3 % (0.0-0.8); Eosinophils # 0.2 10*3/uL (0.0-0.87); Eosinophils % 1.3 % (0.00-10.9); Hematocrit 26.1 VOL% (35.7-47.0); Hemoglobin 8.3 GM/DL (12.0-16.0); Immature Granulocytes % 2.4 %; Immature Granulocytes Absolute 0.33 #; Lymphocytes # 1.6 10*3/uL (1.4-4.0); Lymphocytes % 11.8 % (21.3-54.2); Mean Corpuscular HGB Conc 31.8 GM/DL (32-36); Mean Corpuscular Volume 88.8 FL (87-102); Mean Platelet Volume 10.3 FL (9.6-12.0); Monocytes % 10.3 % (1.7-12.7); NRBC # 0.12 10*3/uL; Neutrophils % 73.9 % (38.7-73.9); Platelet Count 205 T/CUMM (130-400); Red Blood Count 2.94 MC/CUMM (3.8-5.5); Red Cell Distribution Width 17.3 % (9.3-17.3); White Blood Count 13.9 T/CUMM (4-12)
[2019-01-15 06:08] LABS: Albumin 2.3 G/DL (3.4-5.0); Bilirubin,Total 1.2 MG/DL (0.2-1.0); Calcium 9.3 MG/DL (8.5-10.1); Osmolality,Calculated 284.4 MOS/KG (273-304)
[2019-01-15] MEDS: INSULIN LISPRO 100 UNIT/ML SUBCUT SCH ×4 (08:04→20:30)
[2019-01-15] MEDS: DOCUSATE SODIUM 100 MG CAPSULE PO SCH ×2 (10:18→20:30)
[2019-01-15] MEDS: LETROZOLE 2.5 MG TABLET PO SCH (10:18)
[2019-01-15] MEDS: POTASSIUM CHLORIDE 10 MEQ TABLET PO SCH (10:19)
[2019-01-15] MEDS: GEMFIBROZIL 600 MG TABLET PO SCH ×2 (10:20→20:30)
[2019-01-15] MEDS: CARVEDILOL 6.25 MG TABLET PO SCH ×2 (10:20→20:30)
[2019-01-15] MEDS: metOLazone 5 MG TABLET PO SCH (10:20)
[2019-01-15] MEDS: PANTOPRAZOLE 40 MG TABLET PO SCH (10:20)
[2019-01-15] MEDS ORDERED: TUBERCULIN SKIN TEST 0.1 ML SYRINGE INTRADERM ONE (11:30)
[2019-01-15] MEDS: FUROSEMIDE 40 MG TABLET PO SCH (14:23)
[2019-01-15] MEDS: SIMVASTATIN 40 MG TABLET PO SCH (20:30)
[2019-01-16] MEDS: ALBUTEROL/IPRATROPIUM 3 ML NEB RESP TX SCH ×3 (00:25→13:15)
[2019-01-16] MEDS: PIPERACILLIN/TAZOBACTAM 3,375 MG in SODIUM CHLORIDE 0.9% 100 ML IV SCH ×2 (03:02→10:13)
[2019-01-16 08:56] LABS: Basophils # 0.1 10*3/uL (0.0-0.2); Basophils % 0.4 % (0.0-0.8); Hematocrit 26.5 VOL% (35.7-47.0); Hemoglobin 8.3 GM/DL (12.0-16.0); Immature Granulocytes % 2.1 %; Lymphocytes # 1.3 10*3/uL (1.4-4.0); Lymphocytes % 9.2 % (21.3-54.2); Mean Corpuscular HGB Conc 31.3 GM/DL (32-36); Mean Corpuscular Volume 88.9 FL (87-102); Mean Platelet Volume 9.7 FL (9.6-12.0); Monocytes % 11.7 % (1.7-12.7); NRBC # 0.09 10*3/uL; Neutrophils % 76.6 % (38.7-73.9); Platelet Count 227 T/CUMM (130-400); Red Blood Count 2.98 MC/CUMM (3.8-5.5); Red Cell Distribution Width 17.4 % (9.3-17.3); White Blood Count 14.1 T/CUMM (4-12)
[2019-01-16 09:31] LABS: Calcium 9.7 MG/DL (8.5-10.1); Osmolality,Calculated 283.4 MOS/KG (273-304)
[2019-01-16] MEDS ORDERED: LORazepam 2 MG/1 ML VIAL IM PRN (09:45)
[2019-01-16] MEDS ORDERED: traZODone 50 MG TABLET PO PRN (09:45)
[2019-01-16] MEDS: INSULIN LISPRO 100 UNIT/ML SUBCUT SCH ×2 (10:00→12:43)
[2019-01-16] MEDS: LETROZOLE 2.5 MG TABLET PO SCH (10:05)
[2019-01-16] MEDS: metOLazone 5 MG TABLET PO SCH (10:05)
[2019-01-16] MEDS: DOCUSATE SODIUM 100 MG CAPSULE PO SCH (10:05)
[2019-01-16] MEDS: GEMFIBROZIL 600 MG TABLET PO SCH (10:06)
[2019-01-16] MEDS: POTASSIUM CHLORIDE 10 MEQ TABLET PO SCH (10:07)
[2019-01-16] MEDS: CARVEDILOL 6.25 MG TABLET PO SCH (10:07)
[2019-01-16] MEDS: traMADol 50 MG TABLET PO PRN (10:08)
[2019-01-16] MEDS: PANTOPRAZOLE 40 MG TABLET PO SCH (10:08)
[2019-01-16] MEDS: FUROSEMIDE 40 MG TABLET PO SCH (11:10)
[2019-01-16] MEDS: POTASSIUM CHLORIDE 20 MEQ TABLET PO PRN (12:34)
[2019-01-16] MEDS ORDERED: LORazepam 2 MG/1 ML VIAL IV PRN (12:38)
[2019-01-16 18:40] VITALS: BP 121/56
== END 2019-01-16 16:10 | disposition hospice, inpatient (51) | DRG 811 ==
LOC: N.ED 14:49 → N.EDINP 17:27 → N.CC 19:33 → N.4E 01-11 19:37
PROVIDERS: ADMIT Family Medicine; ATTEND Family Medicine

== ENCOUNTER 2019-01-26 10:46 | Inpatient (IN) ==
[2019-01-26 11:08] LABS: Basophils % 0.1 % (0.0-0.8); Immature Granulocytes % 2.8 %; Immature Granulocytes Absolute 0.52 #; Lymphocytes # 1.4 10*3/uL (1.4-4.0); Lymphocytes % 7.5 % (21.3-54.2); Mean Corpuscular HGB Conc 32.8 GM/DL (32-36); Mean Corpuscular Volume 85.1 FL (87-102); Mean Platelet Volume 11.8 FL (9.6-12.0); Monocytes % 8.4 % (1.7-12.7); Neutrophils % 81.2 % (38.7-73.9); Red Blood Count 2.08 MC/CUMM (3.8-5.5); Red Cell Distribution Width 18.3 % (9.3-17.3); White Blood Count 18.5 T/CUMM (4-12)
[2019-01-26 11:14] LABS: Hemoglobin 5.8 GM/DL (12.0-16.0)
[2019-01-26] MEDS ORDERED: SODIUM CHLORIDE 0.9% 1,000 ML IV STA (11:14)
[2019-01-26] MEDS ORDERED: fentaNYL 100 MCG/2 ML VIAL IV STA (11:14)
[2019-01-26] MEDS ORDERED: ONDANSETRON 4 MG/2 ML VIAL IV STA (11:14)
[2019-01-26] MEDS ORDERED: DICYCLOMINE 20 MG/2 ML AMP IM ONE (11:14)
[2019-01-26 11:15] LABS: Hematocrit 17.7 VOL% (35.7-47.0)
[2019-01-26 11:16] LABS: Platelet Count 72 T/CUMM (130-400)
[2019-01-26 11:22] LABS: Albumin 2.1 G/DL (3.4-5.0); Bilirubin,Total 1.1 MG/DL (0.2-1.0); Calcium 9.1 MG/DL (8.5-10.1); Total Protein 6.9 G/DL (6.4-8.3)
[2019-01-26 11:25] LABS: Band Neutrophils 2 % (0-10); Lymphocytes 11 % (20-55); Nucleated Red Blood Cells 4 (0-5); Platelet Estimate Decreased; Segmented Neutrophils 80 % (50-85); Total Cells Counted 100
[2019-01-26 11:26] LABS: Hypochromasia 2+
[2019-01-26] MEDS ORDERED: MEROPENEM 1,000 MG in SODIUM CHLORIDE 0.9% 100 ML IV STA ×2 (11:33→11:37)
[2019-01-26] MEDS ORDERED: MEROPENEM 1,000 MG VIAL IV ONE (11:39)
[2019-01-26] MEDS ORDERED: SODIUM CHLORIDE 0.9% 100 ML IV ONE (11:40)
[2019-01-26 11:48] LABS: Amylase 33 U/L (25-115); Troponin I < 0.015 NG/ML (0.00-0.045)
[2019-01-26] MEDS ORDERED: POTASSIUM BICARB EFFERVESCENT 25 MEQ TABLET PO ONE (12:12)
[2019-01-26] MEDS ORDERED: SODIUM CHLORIDE 0.9% 1,000 ML IV PRN ×2 (12:19→15:29)
[2019-01-26 12:29] LABS: Amorphous Crystals,Urine Few /HPF (Few); Apearance,Urine CLEAR (Clear); Bilirubin,Urine Negative (Negative); Blood, Urine Negative (Negative); Glucose,Urine (UA) Negative (Negative); Hyaline Casts,Urine 65 /LPF (0-3); Ketones,Urine Negative (Negative); Mucus,Urine Occasional /LPF (Occasional); Nitrite,Urine Negative (Negative); Protein,Urine Negative; Urine Color Yellow (Yellow); Urine Specific Gravity 1.011 (1.001-1.035)
[2019-01-26] MEDS ORDERED: ONDANSETRON 4 MG/2 ML VIAL IV PRN (12:32)
[2019-01-26] MEDS ORDERED: GLUCAGON 1 MG VIAL IM PRN (12:32)
[2019-01-26] MEDS ORDERED: DEXTROSE 50% 25 GM/50 ML VIAL IV PRN ×2 (12:32)
[2019-01-26] MEDS: ALBUTEROL/IPRATROPIUM 3 ML NEB RESP TX SCH ×2 (13:47→19:25)
[2019-01-26] MEDS ORDERED: MORPHINE 4 MG/1 ML VIAL IV PRN (14:04)
[2019-01-26] MEDS ORDERED: MAGNESIUM SULF RIDER 2 GM in PREMIX 1 EACH IV PRN (14:04)
[2019-01-26] MEDS ORDERED: MAGNESIUM SULF RIDER 4 GM in PREMIX 1 EACH IV PRN (14:04)
[2019-01-26] MEDS ORDERED: LORazepam 2 MG/1 ML VIAL IM PRN (14:17)
[2019-01-26] MEDS ORDERED: traZODone 50 MG TABLET PO PRN (14:17)
[2019-01-26] MEDS ORDERED: LACTULOSE 20 GM/30 ML UDCUP PO PRN (14:17)
[2019-01-26] MEDS ORDERED: ALBUTEROL 2.5 MG/3 ML NEB RESP TX PRN (14:30)
[2019-01-26] MEDS: MEROPENEM 500 MG in SODIUM CHLORIDE 0.9% 100 ML IV SCH (15:58)
[2019-01-26] MEDS: INSULIN REGULAR 100 UNIT/ML SUBCUT SCH ×2 (16:44→20:50)
[2019-01-26] MEDS ORDERED: ALBUTEROL/IPRATROPIUM 3 ML NEB RESP TX SCH (19:00)
[2019-01-26] MEDS: POTASSIUM CHLORIDE RIDER 10 MEQ in PREMIX 1 EACH IV PRN ×2 (21:22→23:10)
[2019-01-26] MEDS: SIMVASTATIN 40 MG TABLET PO SCH (21:24)
[2019-01-27] MEDS: ALBUTEROL/IPRATROPIUM 3 ML NEB RESP TX SCH ×4 (00:15→19:05)
[2019-01-27] MEDS: MEROPENEM 500 MG in SODIUM CHLORIDE 0.9% 100 ML IV SCH ×4 (00:16→23:17)
[2019-01-27] MEDS: fentaNYL 100 MCG/2 ML VIAL IV PRN ×4 (00:25→23:07)
[2019-01-27] MEDS: POTASSIUM CHLORIDE RIDER 10 MEQ in PREMIX 1 EACH IV PRN ×8 (00:56→23:50)
[2019-01-27 05:43] LABS: Basophils % 0.1 % (0.0-0.8); Eosinophils # 0.1 10*3/uL (0.0-0.87); Eosinophils % 0.4 % (0.00-10.9); Hematocrit 20.5 VOL% (35.7-47.0); Hemoglobin 6.8 GM/DL (12.0-16.0); Immature Granulocytes % 3.4 %; Immature Granulocytes Absolute 0.56 #; Lymphocytes # 1.3 10*3/uL (1.4-4.0); Lymphocytes % 7.7 % (21.3-54.2); Mean Corpuscular HGB Conc 33.2 GM/DL (32-36); Mean Corpuscular Volume 86.9 FL (87-102); Mean Platelet Volume 10.7 FL (9.6-12.0); Monocytes % 10.8 % (1.7-12.7); NRBC # 0.24 10*3/uL; Neutrophils % 77.6 % (38.7-73.9); Red Blood Count 2.36 MC/CUMM (3.8-5.5); Red Cell Distribution Width 16.8 % (9.3-17.3); White Blood Count 16.3 T/CUMM (4-12)
[2019-01-27 05:48] LABS: Platelet Count 50 T/CUMM (130-400)
[2019-01-27 06:20] LABS: Bilirubin,Total 1.1 MG/DL (0.2-1.0); Osmolality,Calculated 293.5 MOS/KG (273-304); Total Protein 6.4 G/DL (6.4-8.3)
[2019-01-27 06:26] LABS: Lymphocytes 8 % (20-55); Nucleated Red Blood Cells 3 (0-5); Platelet Estimate Decreased; Polychromasia Few; Segmented Neutrophils 89 % (50-85); Target Cells Few; Total Cells Counted 100
[2019-01-27] MEDS: INSULIN REGULAR 100 UNIT/ML SUBCUT SCH ×4 (08:20→22:00)
[2019-01-27] MEDS: POTASSIUM CHLORIDE 10 MEQ TABLET PO SCH (09:21)
[2019-01-27] MEDS: LETROZOLE 2.5 MG TABLET PO SCH (09:21)
[2019-01-27] MEDS: PANTOPRAZOLE 40 MG TABLET PO SCH (09:21)
[2019-01-27 10:08] LABS: Hemoglobin 7.1 GM/DL (12.0-16.0)
[2019-01-27] MEDS: SODIUM CHLORIDE 0.9% 1,000 ML IV SCH (14:47)
[2019-01-27] MEDS ORDERED: diphenhydrAMINE 25 MG/10 ML UDCUP PO PRN (16:02)
[2019-01-27] MEDS ORDERED: ACETAMINOPHEN 325 MG TABLET PO PRN (16:04)
[2019-01-27 19:39] LABS: Hematocrit 23.6 VOL% (35.7-47.0); Hemoglobin 7.6 GM/DL (12.0-16.0)
[2019-01-27] MEDS: SIMVASTATIN 40 MG TABLET PO SCH (20:34)
[2019-01-28] MEDS: ALBUTEROL/IPRATROPIUM 3 ML NEB RESP TX SCH ×4 (00:43→20:01)
[2019-01-28] MEDS: POTASSIUM CHLORIDE RIDER 10 MEQ in PREMIX 1 EACH IV PRN ×3 (01:50→22:26)
[2019-01-28 03:52] LABS: Basophils % 0.3 % (0.0-0.8); Eosinophils # 0.1 10*3/uL (0.0-0.87); Eosinophils % 0.4 % (0.00-10.9); Hematocrit 22.9 VOL% (35.7-47.0); Hemoglobin 7.3 GM/DL (12.0-16.0); Immature Granulocytes Absolute 0.48 #; Lymphocytes # 1.5 10*3/uL (1.4-4.0); Lymphocytes % 9.1 % (21.3-54.2); Mean Corpuscular HGB Conc 31.9 GM/DL (32-36); Mean Corpuscular Volume 89.5 FL (87-102); Mean Platelet Volume 11.4 FL (9.6-12.0); Neutrophils % 75.2 % (38.7-73.9); Red Blood Count 2.56 MC/CUMM (3.8-5.5); Red Cell Distribution Width 17.9 % (9.3-17.3); White Blood Count 15.9 T/CUMM (4-12)
[2019-01-28 03:58] LABS: Platelet Count 28 T/CUMM (130-400)
[2019-01-28 04:08] LABS: Osmolality,Calculated 302.8 MOS/KG (273-304)
[2019-01-28] MEDS ORDERED: SODIUM CHLORIDE 0.9% 1,000 ML IV PRN ×2 (04:13→04:18)
[2019-01-28 04:30] LABS: Band Neutrophils 1 % (0-10); Lymphocytes 9 % (20-55); Nucleated Red Blood Cells 4 (0-5); Segmented Neutrophils 81 % (50-85)
[2019-01-28 04:31] LABS: Hypochromasia 2+; Platelet Estimate Decreased; Polychromasia Few
[2019-01-28 04:32] LABS: Total Cells Counted 100
[2019-01-28] MEDS: MEROPENEM 500 MG in SODIUM CHLORIDE 0.9% 100 ML IV SCH ×3 (06:40→23:34)
[2019-01-28] MEDS: INSULIN REGULAR 100 UNIT/ML SUBCUT SCH ×4 (08:39→22:24)
[2019-01-28] MEDS: PANTOPRAZOLE 40 MG TABLET PO SCH (09:18)
[2019-01-28] MEDS: LETROZOLE 2.5 MG TABLET PO SCH (09:18)
[2019-01-28] MEDS: POTASSIUM CHLORIDE 10 MEQ TABLET PO SCH (09:18)
[2019-01-28 16:43] LABS: Basophils % 0.2 % (0.0-0.8); Eosinophils # 0.1 10*3/uL (0.0-0.87); Eosinophils % 0.3 % (0.00-10.9); Hematocrit 21.6 VOL% (35.7-47.0); Hemoglobin 6.7 GM/DL (12.0-16.0); Immature Granulocytes Absolute 0.49 #; Lymphocytes # 1.4 10*3/uL (1.4-4.0); Lymphocytes % 8.7 % (21.3-54.2); Mean Corpuscular Volume 91.5 FL (87-102); Mean Platelet Volume 11.2 FL (9.6-12.0); NRBC # 0.43 10*3/uL; Neutrophils % 78.8 % (38.7-73.9); Platelet Count 70 T/CUMM (130-400); Red Blood Count 2.36 MC/CUMM (3.8-5.5); Red Cell Distribution Width 18.3 % (9.3-17.3); White Blood Count 16.4 T/CUMM (4-12)
[2019-01-28 17:00] LABS: Anisocytosis 1+
[2019-01-28 17:01] LABS: Hypochromasia 1+; Polychromasia 1+
[2019-01-28 17:05] LABS: Basophilic Stippling 1+; Target Cells Few
[2019-01-28 17:06] LABS: Platelet Estimate Decreased; Schistocytes Few
[2019-01-28] MEDS: SODIUM CHLORIDE 0.9% 1,000 ML IV SCH (19:02)
[2019-01-28] MEDS: SIMVASTATIN 40 MG TABLET PO SCH (21:23)
[2019-01-29] MEDS: POTASSIUM CHLORIDE RIDER 10 MEQ in PREMIX 1 EACH IV PRN ×2 (00:30→01:34)
[2019-01-29] MEDS: ALBUTEROL/IPRATROPIUM 3 ML NEB RESP TX SCH ×4 (00:56→19:20)
[2019-01-29 05:39] LABS: Basophils % 0.3 % (0.0-0.8); Eosinophils # 0.3 10*3/uL (0.0-0.87); Eosinophils % 1.8 % (0.00-10.9); Hematocrit 19.9 VOL% (35.7-47.0); Immature Granulocytes Absolute 0.64 #; Lymphocytes # 1.3 10*3/uL (1.4-4.0); Mean Corpuscular HGB Conc 31.7 GM/DL (32-36); Mean Corpuscular Volume 92.1 FL (87-102); Monocytes % 10.3 % (1.7-12.7); NRBC # 0.43 10*3/uL; Neutrophils % 75.6 % (38.7-73.9); Red Blood Count 2.16 MC/CUMM (3.8-5.5); Red Cell Distribution Width 18.7 % (9.3-17.3); White Blood Count 15.9 T/CUMM (4-12)
[2019-01-29] MEDS: SODIUM CHLORIDE 0.9% 1,000 ML IV SCH ×3 (05:49→21:30)
[2019-01-29 05:54] LABS: Hemoglobin 6.3 GM/DL (12.0-16.0); Platelet Count 52 T/CUMM (130-400)
[2019-01-29 05:59] LABS: Band Neutrophils 1 % (0-10); Hypochromasia 1+; Lymphocytes 9 % (20-55); Nucleated Red Blood Cells 2 (0-5); Platelet Estimate Decreased; Segmented Neutrophils 84 % (50-85); Total Cells Counted 100
[2019-01-29] MEDS: MEROPENEM 500 MG in SODIUM CHLORIDE 0.9% 100 ML IV SCH ×2 (06:00→15:30)
[2019-01-29 06:18] LABS: Calcium 8.7 MG/DL (8.5-10.1); Osmolality,Calculated 297.7 MOS/KG (273-304)
[2019-01-29] MEDS ORDERED: SODIUM CHLORIDE 0.9% 1,000 ML IV PRN (06:27)
[2019-01-29] MEDS: INSULIN REGULAR 100 UNIT/ML SUBCUT SCH ×3 (09:16→12:52)
[2019-01-29] MEDS: LETROZOLE 2.5 MG TABLET PO SCH (09:17)
[2019-01-29] MEDS: POTASSIUM CHLORIDE 10 MEQ TABLET PO SCH (09:18)
[2019-01-29] MEDS: PANTOPRAZOLE 40 MG TABLET PO SCH (09:18)
[2019-01-29] MEDS ORDERED: diphenhydrAMINE 50 MG/1 ML VIAL IV ONE (10:00)
[2019-01-29] MEDS: SIMVASTATIN 40 MG TABLET PO SCH (21:23)
[2019-01-30] MEDS: ALBUTEROL/IPRATROPIUM 3 ML NEB RESP TX SCH ×4 (01:45→18:40)
[2019-01-30 04:58] LABS: Basophils # 0.1 10*3/uL (0.0-0.2); Basophils % 0.4 % (0.0-0.8); Eosinophils % 0.1 % (0.00-10.9); Hematocrit 25.1 VOL% (35.7-47.0); Immature Granulocytes % 4.7 %; Immature Granulocytes Absolute 0.98 #; Lymphocytes # 1.7 10*3/uL (1.4-4.0); Lymphocytes % 8.3 % (21.3-54.2); Mean Corpuscular HGB Conc 31.1 GM/DL (32-36); Mean Corpuscular Volume 92.3 FL (87-102); Mean Platelet Volume 12.3 FL (9.6-12.0); Monocytes % 9.7 % (1.7-12.7); NRBC # 0.33 10*3/uL; Neutrophils % 76.8 % (38.7-73.9); Red Cell Distribution Width 18.2 % (9.3-17.3)
[2019-01-30 05:04] LABS: Hemoglobin 7.8 GM/DL (12.0-16.0); Red Blood Count 2.72 MC/CUMM (3.8-5.5); White Blood Count 20.7 T/CUMM (4-12)
[2019-01-30 05:05] LABS: Platelet Count 51 T/CUMM (130-400)
[2019-01-30 05:28] LABS: Calcium 8.5 MG/DL (8.5-10.1); Osmolality,Calculated 294.8 MOS/KG (273-304)
[2019-01-30] MEDS: HydrOXYzine PAMOATE 25 MG CAPSULE PO PRN ×2 (05:41→23:05)
[2019-01-30 06:03] LABS: Eosinophils 2 % (0-10); Lymphocytes 6 % (20-55); Segmented Neutrophils 89 % (50-85); Total Cells Counted 100
[2019-01-30 06:04] LABS: Hypochromasia 1+; Microcytosis 1+; Platelet Estimate Normal; Polychromasia Few
[2019-01-30] MEDS: INSULIN REGULAR 100 UNIT/ML SUBCUT SCH ×4 (07:16→21:00)
[2019-01-30] MEDS: SODIUM CHLORIDE 0.9% 1,000 ML IV SCH ×2 (07:17→23:20)
[2019-01-30] MEDS: PANTOPRAZOLE 40 MG TABLET PO SCH (09:15)
[2019-01-30] MEDS: POTASSIUM CHLORIDE 10 MEQ TABLET PO SCH (09:15)
[2019-01-30] MEDS: LETROZOLE 2.5 MG TABLET PO SCH (09:15)
[2019-01-30] MEDS: MEROPENEM 500 MG in SODIUM CHLORIDE 0.9% 100 ML IV SCH ×4 (09:17→23:05)
[2019-01-30] MEDS: SIMVASTATIN 40 MG TABLET PO SCH (23:05)
[2019-01-31] MEDS: ALBUTEROL/IPRATROPIUM 3 ML NEB RESP TX SCH ×2 (00:25→07:17)
[2019-01-31 05:41] LABS: Basophils % 0.2 % (0.0-0.8); Eosinophils # 0.1 10*3/uL (0.0-0.87); Eosinophils % 0.5 % (0.00-10.9); Hematocrit 22.9 VOL% (35.7-47.0); Hemoglobin 7.2 GM/DL (12.0-16.0); Immature Granulocytes % 4.9 %; Immature Granulocytes Absolute 0.98 #; Lymphocytes # 2.2 10*3/uL (1.4-4.0); Lymphocytes % 10.8 % (21.3-54.2); Mean Corpuscular HGB Conc 31.4 GM/DL (32-36); Mean Corpuscular Volume 91.6 FL (87-102); Mean Platelet Volume 12.7 FL (9.6-12.0); Monocytes % 9.9 % (1.7-12.7); NRBC # 0.23 10*3/uL; Neutrophils % 73.7 % (38.7-73.9); Red Cell Distribution Width 18.3 % (9.3-17.3)
[2019-01-31 05:51] LABS: Platelet Count 47 T/CUMM (130-400)
[2019-01-31 06:05] LABS: Band Neutrophils 1 % (0-10); Eosinophils 1 % (0-10); Lymphocytes 11 % (20-55); Nucleated Red Blood Cells 1 (0-5); Platelet Estimate Decreased; Segmented Neutrophils 82 % (50-85); Total Cells Counted 100
[2019-01-31 06:06] LABS: Calcium 8.3 MG/DL (8.5-10.1); Hypochromasia 1+; Microcytosis 1+; Osmolality,Calculated 293.6 MOS/KG (273-304)
[2019-01-31] MEDS: MEROPENEM 500 MG in SODIUM CHLORIDE 0.9% 100 ML IV SCH (10:04)
[2019-01-31] MEDS: POTASSIUM CHLORIDE 10 MEQ TABLET PO SCH (10:05)
[2019-01-31] MEDS: INSULIN REGULAR 100 UNIT/ML SUBCUT SCH ×2 (10:05→13:36)
[2019-01-31] MEDS: LETROZOLE 2.5 MG TABLET PO SCH (10:06)
[2019-01-31] MEDS: PANTOPRAZOLE 40 MG TABLET PO SCH (10:06)
[2019-01-31] MEDS: POTASSIUM CHLORIDE RIDER 10 MEQ in PREMIX 1 EACH IV PRN ×4 (10:08→13:37)
[2019-01-31 12:25] VITALS: BP 135/81
== END 2019-01-31 15:26 | DRG 435 ==
LOC: EDBD → EDUNIT# → N.ED 10:46 → N.EDINP 12:31 → N.2E 13:06 → N.4E 14:58
PROVIDERS: ADMIT Family Medicine; ATTEND Family Medicine